=== PATIENT | female | born 1990 | race Caucasian/White ===

== ENCOUNTER 2016-09-17 19:08 | Emergency (ER) | payer MEDICAID ==
[~2016-09-17 19:08] MED LIST: CEPH-460 PO; NITR1CAP36 PO; PREN1CAP20; PROM25TA5 PO
[2016-09-17] MEDS ORDERED: LACTATED RINGER'S 1000 ML INJ 1,000 ML IV SCH (19:45)
[2016-09-17] MEDS ORDERED: TERBUTALINE INJ 1 MG/ML AMP SQ PRN (20:00)
[2016-09-17 20:20] LABS: HEMATOCRIT 34.1 % (35.0-46.0); MEAN CELL VOLUME 91.4 FL (80.0-100.0); MEAN CORPUSCULAR HEMOGLOBIN 31.1 PG (27.0-34.0); PLATELET COUNT 298 TH/MM3 (150-450); RED BLOOD COUNT 3.73 MIL/MM3 (4.00-5.30); RED CELL DISTRIBUTION WIDTH 13.4 % (11.6-17.2); REVIEW FLAG FINAL; WHITE BLOOD COUNT 11.4 TH/MM3 (4.0-11.0)
[2016-09-17 20:30] LABS: AMPHETAMINE, URINE NEG (NEG); BARBITURATES, URINE NEG (NEG)
[2016-09-17 20:38] LABS: COCAINE, URINE POS (NEG)
--- NOTE | 2016-09-17 20:55 | PD ---
HPI Chief Complaint decreased movement Date Seen: Sep 17, 2016 Travel History International Travel<30 Days: No Contact w/Intl Traveler<30Days: No Known Affected Area: No History of Present Illness HPI Patient is a 25-year-old white female at 36 weeks and 6 days presents complaining of decreased movement and occasional contractions. She denies bleeding or rupture the membranes. heart rate tracing is reactive hours she is also mary every 2-3 minutes. 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 SKIN: Warm and dry. HEAD: Normocephalic and atraumatic. EYES: No scleral icterus. No injection or drainage. ENT: No nasal drainage noted. Mucous membranes pink. Airway patent. NECK: Supple, trachea midline. No JVD. CARDIOVASCULAR: Regular rate and rhythm without murmurs, gallops, or rubs. RESPIRATORY: Breath sounds equal bilaterally. No accessory muscle use. BREASTS: Bilateral exam showed no masses , no retractions, no nipple discharge. ABDOMEN/GI: Abdomen soft, non-tender, bowel sounds present, no rebound, no guarding Gravid to [35-] weeks size Fundal Height: [-34 cm] GENITOURINARY: External Genitalia: intact and normal in appearance BUS glands: [-] Cervix: [-] Dilatation: [-1-2] Effacement: [-thick] Station: [-3] Presentation: [-breech] Membranes: [intact ] Uterine Contractions: [-] Initially mary regularly but that with tocolysis and hydration IV contractions stopped FHT's: Category: [-1] Baseline: [144-] Reactive: [-yes] Variability: [-mod] Decels: [none-] EXTREMITIES: No cyanosis or edema. BACK: Nontender without obvious deformity. No CVA tenderness. NEUROLOGICAL: Awake and alert. Motor and sensory grossly within normal limits. Five out of 5 muscle strength in all muscle groups. Normal speech. Data Data Orders Vital Signs (Adult) .ON ADMISSION (09/17/16 19:45) ^ Labor Status (09/17/16 19:45) Cbc No Diff, Includes Plts (09/17/16 19:45) Type And Screen (09/17/16 19:45) Lactated Ringer's 1000 Ml Inj (Lr 1000 M (09/17/16 19:45) Terbutaline Inj (Brethine Inj) (09/17/16 20:00) Ob/Psych Drug Screen, Urine (09/17/16 20:06) Ur Bath Salts (09/17/16 19:20) Ur Heroin (09/17/16 19:20) Ur K2 Spice (09/17/16 19:20) Ur Ecstasy (09/17/16 19:20) Ur Methadone (09/17/16 19:20) Phencyclidine Urine (Pcp) (09/17/16 19:20) Labs Laboratory Tests Test 09/17/16 09/17/16 19:20 20:00 Urine Opiates Screen NEG Urine Barbiturates Screen NEG Urine Amphetamines Screen NEG Urine Benzodiazepines Screen NEG Urine Cocaine Screen POS Urine Cannabinoids Screen NEG White Blood Count 11.4 Red Blood Count 3.73 Hemoglobin 11.6 Hematocrit 34.1 Mean Corpuscular Volume 91.4 Mean Corpuscular Hemoglobin 31.1 Mean Corpuscular Hemoglobin 34.0 Concent Red Cell Distribution Width 13.4 Platelet Count 298 Mean Platelet Volume 9.8 MDM Interpretation(s) 25-year-old white female at 36 weeks and 6 days presents complaining of decreased movement and few contractions. Here on OB ED noted be mary every 2 minutes. She is still in a breech presentation as was documented prior and she scheduled for in 2 weeks for that she denies bleeding or ruptured membranes. And she is [facility] by [facility] care. The patient's contractions noted we started an IV and give her IV fluid she was apparently dehydrated fluid temporally stopped contractions. Also given one dose of terbutaline subcutaneous. CTXs decrease to the point she's to be discharged home. Her urinalysis was negative for infection but positive for cocaine use her previous previous visit appears was positive for amphetamine use she was certainly encouraged not to do drugs while and this is certainly cocaine particularly was associated with demise and abruption. She'll be discharged home bed rest drink plenty of fluids use Tylenol liberally heating pad or hot bath Plan And plan patient be discharged home to bedrest increase oral intake of fluids Tylenol use liberally. She is to return for any great increase in pain bleeding or rupture the membranes. Any once again encouraged not to do drugs of any kind Diagnosis Diagnosis: Primary Impression: Decreased movement affecting management of in third trimester Additional Impressions: Breech presentation Dehydration, mild Aguilar Hick's contraction Disposition: 01 DISCHARGE HOME Condition: Stable Patient Instructions: General Instructions, Early Labor Signs (ED), Movement (ED) Additional Instructions: KEEP NEXT SCHEDULED APPOINTMENT Departure Forms: Tests/Procedures Remigio Menjivar II, MD Sep 17, 2016 20:55
[2016-09-23 13:38] LABS: BATH SALTS (MDPV) UR NEG (NEG); ECSTASY (MDMA) UR NEG (NEG); HEROIN (6-ACETYLMORPHINE) UR NEG (NEG); K2 SPICE UR NEG (NEG); OBMETHADONE UR NEG (NEG); OXYCODONE (PERCODAN) NEG (NEG); PHENCYCLIDINE URINE NEG (NEG)
[2017-01-10] MEDS ORDERED: MACR100C2 PO (11:04)
[2017-01-24] MEDS ORDERED: PROZ20CA11 PO (11:07)
== END 2016-09-17 21:20 | disposition home or self-care (01) ==
LOC: HOBED 19:08
DX: O36.8130 Decreased fetal movements, third trimester, not applicable or unspecified (principal); O32.1XX0 Maternal care for breech presentation, not applicable or unspecified; E86.0 Dehydration; Z3A.36 36 weeks gestation of pregnancy; Z72.0 Tobacco use
CPT/HCPCS: 59025; 80307; 85027; 86077; 86850; 86870; 86900; 86901; 86920; 86921; 86922; 96372; 99284; G0481; J3105; J7120

== ENCOUNTER 2016-09-21 22:57 | Inpatient (IN) | payer MEDICAID ==
[~2016-09-21] VITALS: Ht 160 cm; Wt 53.1 kg
[2016-09-21] MEDS ORDERED: LACTATED RINGER'S 1000 ML INJ 1,000 ML IV ONE (23:22)
--- NOTE | 2016-09-21 23:33 | HHI.HP ---
HPI Travel History International Travel<30 Days: No Contact w/Intl Traveler<30Days: No Known Affected Area: No History of Present Illness HPI This patient is a 25-year-old 2 para 1 EDC is October 09, 2016 presently at 37 weeks and 3 days she presents with chief complaint of onset of contractions and leaking fluid patient is breech and she is scheduled for a section at 39 weeks care with [facility] course is significant for breech presentation History of low amniotic fluid index last checked was 8.5 however patient has been leaking fluid History Past Medical History Narrative Medical Patient is allergic to latex has MDR O multidrug-resistant organism History of anxiety she states that she has had a heart attack in the past in March 2015 however this could not be confirmed history of congenital kidney disorder hypoplastic left kidney Tested positive for MRSA in February 2016 nasal swab negative April 2016 Rh- she received RhoGAM at 28 weeks group B strep is negative Patient last ate she states 2 bites of food just prior to coming in Breech confirmed with ultrasound History of anxiety Obstetric History Obstetric History History of labor at 24 weeks she delivered the baby at 36 weeks 2010 vaginal delivery Past Surgical History Narrative Surgical Kidney surgery Family History Narrative Family History Noncontributory Social History Alcohol Use: Yes Tobacco Use: No Substance Abuse: No Allergies-Medications (Allergen,Severity, Reaction): Coded Allergies: Latex (Verified Allergy, Severe, 09/20/16) *MDRO Multi-Drug Resistant Organism (Verified Adverse Reaction, Unknown, ) 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 Alert oriented 3 and cooperative in moderate distress secondary to uterine contractions CARDIOVASCULAR: Regular rate and rhythm without murmurs, gallops, or rubs. RESPIRATORY: Breath sounds equal bilaterally. No accessory muscle use. ABDOMEN/GI: Gravid consistent with stated gestational age estimated weight of about 6 pounds Gravid to [-] weeks size Fundal Height: [-] GENITOURINARY: External Genitalia: intact and normal in appearance BUS glands: [-] Cervix: [-] Midline Dilatation: [-] 5 cm Effacement: [-] 100% Station: [-] -2 Presentation: [-] Breech Membranes: [ ruptured] Uterine Contractions: [-] FHT's: Category: [-]1 Baseline: [-] 140 Reactive: [-] + Variability: [-] Moderate Decels: [-] 0 EXTREMITIES: No cyanosis or edema. 2+ reflexes NEUROLOGICAL: Awake and alert. Motor and sensory grossly within normal limits. Five out of 5 muscle strength in all muscle groups. Normal speech. Data Data Vital Signs Reviewed: Yes Orders Ob (2e) Additional Admit Info (09/21/16 23:16) Admit To Inpatient (09/21/16 ) Code Status (09/21/16 23:22) Vital Signs (Adult) .ON ADMISSION (09/21/16 23:22) Activity Oob Ad Sisi (09/21/16 23:22) ^ Heart (09/21/16 23:22) Urinary Catheter Management DEEDEE.Q8H (09/21/16 23:22) ^ Preps (09/21/16 23:22) Scd / Tez / Foot Pump DEEDEE.QSHIFT (09/21/16 23:22) ^ Ultrasound For Locatio (09/21/16 23:22) Diet Npo (09/22/16 Breakfast) Lactated Ringer's 1000 Ml Inj (Lr 1000 M (09/21/16 23:22) Lactated Ringer's 1000 Ml Inj (Lr 1000 M (09/21/16 23:52) Cefazolin 2 Gm Premix (Ancef 2 Gm Premix (09/22/16 00:30) Citric Acid-Sodium Citrate Liq (Bicitra (09/22/16 01:00) Type And Screen (09/21/16 23:22) Complete Blood Count With Diff (09/21/16 23:22) Urinalysis - C+S If Indicated (09/21/16 23:22) Assessment/Plan Assessment and Plan 25-year-old at 37 weeks and 3 days Breech presentation Ruptured membranes Active labor Rh- History of kidney disease History of positive MRSA last exam was negative Latex allergy Plan; Admit External monitoring IV fluid hydration Preop for primary for breech presentation in active labor with ruptured membranes Procedure indications and complications have been fully discussed with the patient she understands and agrees Yanet Hanley MD Sep 21, 2016 23:33
[2016-09-21 23:38] VITALS: BP 139/84; PULSE 97
[2016-09-21 23:39] LABS: AUTOMATED NEUTROPHIL # 12.4 TH/MM3 (1.8-7.7); BASOPHIL # 0.1 TH/MM3 (0-0.2); BASOPHIL % 0.4 % (0.0-2.0); EOSINOPHIL # 0.1 TH/MM3 (0-0.4); EOSINOPHIL % 0.5 % (0.0-4.0); HEMATOCRIT 34.7 % (35.0-46.0); HEMO FLAGS DIFF FINAL; LYMPH % 20.5 % (9.0-44.0); LYMPHOCYTE # 3.4 TH/MM3 (1.0-4.8); MEAN CELL VOLUME 91.4 FL (80.0-100.0); MEAN CORPUSCULAR HGB CONC 32.8 % (32.0-36.0); MONO % 4.6 % (0.0-8.0); PLATELET COUNT 302 TH/MM3 (150-450); RED CELL DISTRIBUTION WIDTH 13.3 % (11.6-17.2); WHITE BLOOD COUNT 16.8 TH/MM3 (4.0-11.0)
[2016-09-21] MEDS ORDERED: EPIDURAL-NO SYSTEMIC NARCOTICS XX PRN (23:50)
[2016-09-21] MEDS ORDERED: EPIDURAL-DIPHENHYDRAMINE HCL 50 MG/ML VIAL IV PUSH PRN (23:50)
[2016-09-21] MEDS ORDERED: EPIDURAL-DO NOT ADMINISTER ANTICOAGULANTS XX PRN (23:50)
[2016-09-21] MEDS ORDERED: EPIDURAL-NALOXONE HCL 0.4 MG/ML AMP IV PRN (23:50)
[2016-09-21] MEDS ORDERED: EPIDURAL-DIPHENHYDRAMINE HCL 50 MG CAP PO PRN (23:50)
[2016-09-21] MEDS ORDERED: LACTATED RINGER'S 1000 ML INJ 1,000 ML IV SCH (23:52)
[2016-09-22] VITALS (8 sets, daily range): BP systolic 102–151; BP diastolic 67–99; PULSE 65–95; RESP 16–18; TEMP 97.7–98.6; O2SAT 93–100
[2016-09-22] MEDS ORDERED: MIDAZOLAM HCL 2 MG/2 ML VIAL ONE (00:15)
[2016-09-22] MEDS ORDERED: ONDANSETRON HCL 4 MG/2 ML VIAL ONE (00:16)
[2016-09-22] MEDS ORDERED: MORPHINE SULFATE PF 5 MG/10 ML VIAL ONE (00:16)
[2016-09-22] MEDS ORDERED: ceFAZolin 2 GM PREMIX 50 ML IV SCH (00:30)
[2016-09-22 00:31] LABS: BLOOD GAS BASE EXCESS -0.1 mmol/L (-2-2); BLOOD GAS O2 HGB SATURATION 29 % (90-100); CORD BLOOD GAS HCO3 25 mmol/L (21-29); CORD BLOOD GAS PCO2 46 mmHg (34-78); CORD BLOOD GAS PH 7.35 (7.14-7.42); CORD BLOOD GAS PO2 15 mmHG; DRAW SITE CORD BLOOD; STAT YES
[2016-09-22 00:45] LABS: BLOOD, URINE SMALL (NEG); COMMENT (UR) CULT NOT INDICATED; CULTURE IF INDICATED CULT NOT INDICATED; GLUCOSE,URINE NEG (NEG); KETONE, URINE NEG (NEG); MUCUS URINE FEW /lpf (OCC); NITRITE,URINE NEG (NEG); PH, URINE 6.5 (5.0-8.5); SQUAMOUS EPITHELIAL CELL URINE 1 /hpf (0-5); URINE COLOR YELLOW (YELLW/STRAW)
[2016-09-22] MEDS ORDERED: ZOLPIDEM TARTRATE 5 MG TAB PO PRN (00:45)
[2016-09-22] MEDS ORDERED: ACETAMINOPHEN 1000 MG/100 ML VIAL IV ONE (00:45)
[2016-09-22] MEDS ORDERED: ONDANSETRON HCL 4 MG/2 ML VIAL IV PUSH PRN (00:45)
[2016-09-22] MEDS ORDERED: OXYTOCIN 30 UNITS-500ML PREMIX 500 ML IV ONE (00:45)
[2016-09-22] MEDS ORDERED: ACETAMINOPHEN 325 MG TAB PO PRN (00:45)
[2016-09-22] MEDS ORDERED: KETOROLAC TROMETHAMINE 60 MG/2 ML (IM) VIAL IM PRN (00:45)
[2016-09-22] MEDS ORDERED: SIMETHICONE 80 MG CHEWABLE TAB PO PRN (00:45)
[2016-09-22] MEDS ORDERED: SODIUM CHLORIDE 0.9% FLUSH 5 ML FLUSH IV PRN (00:45)
[2016-09-22 00:46] LABS: AMPHETAMINE, URINE NEG (NEG); BARBITURATES, URINE NEG (NEG); COCAINE, URINE NEG (NEG)
--- NOTE | 2016-09-22 00:47 | PD.OP ---
Operative Report Date of Surgery: Sep 22, 2016 Preoperative Diagnosis: Intrauterine at 37 weeks 3 days Breech presentation Premature rupture membranes Active labor Postoperative Diagnosis: Same Double footling breech Partial abruption Procedure: Primary low segment transverse section Anesthesia: Spinal Surgeon: Yanet Hickey Director Foundation(s): Or staff Resident Surgeon: None Operation and Findings: Viable male infant weight 2416 grams Apgars of 8 at 1 minute 9 at 5 minutes Double footling breech Partial placental abruption Anesthesiologist:: (Dr. Harris ) Estimated blood loss: (600 cc ) Sponge and instrument count: (Correct ) Drains: (None ) Complications: (None ) Indications for procedure: (Breech presentation ) Findings: (Male infant weight 2416 grams Apgars of 8 and 1 minute 9 at 5 minutes partial abruption ) Timeout done The patient was taken to the operating room after appropriate levels of spinal anesthesia were achieved she was placed in the supine position. A Schaffer catheter was inserted under sterile conditions and draining adequate clear urine. Intermittent compression hoses were placed and functioning. Bovie pad was placed and grounded. The abdomen was shaved prepped and draped in the usual sterile fashion. A transverse Pfannenstiel incision was made carried down through the skin subcutaneous tissue. The fascia was opened transversely. from the muscles in the midline. The rectus muscles were . Peritoneal cavity opened and the abdominal cavity entered. The bladder flap was taken down transversely and a low segment transverse incision made into the lower uterine segment. The fluid was (light meconium-stained ). Large clot extruded from the inside of the uterus The infant was double footling breech . Both feet were then grasped the baby was elevated into the incision Pinars maneuvers were used to deliver the arms the vertex delivered spontaneously Cord doubly clamped and cut and the handed over to the awaiting nursing staff. The placenta spontaneously delivered intact with fundal massage. The uterus was then exteriorized cleaned of excessive blood and debris. The incision was then closed with 0 chromic in a continuous interlocking stitch. The stitch line was imbricated also using 0 chromic. No active bleeding. Tubes and ovaries were inspected and found to be normal. The abdominal cavity was then irrigated. The uterus placed back into the abdomen. Paracolic gutters cleaned of excessive blood and debris. Interceed was then placed over the incision and the anterior surface of the uterus in an inverted T. The peritoneum was then closed with 2-0 Vicryl. The muscles reapproximated. Inspection of the muscle bed demonstrated no bleeding. Intercede placed over the muscle at the midline. The fascia was then closed with 0 Vicryl in a continuous stitch. The subcutaneous tissue was irrigated bleeders controlled with Bovie. Adelso's fascia closed with 2-0 Vicryl. The skin was closed using ( 3-0 Monocryl on a Julien needle). The uterus was massaged clearing blood and clots. The patient was cleaned. Pressure dressing and abdominal binder placed. Patient then transferred to the recovery room in stable condition, where her vital signs are (blood pressure mildly elevated 160s over 70s Will monitor closely ). Urine is clear and adequate. Baby transferred to the nursery in stable condition. Yanet Hanley MD Sep 22, 2016 00:47
[2016-09-22] MEDS ORDERED: CITRIC ACID-SODIUM CITRATE LIQ 30 ML UDC PO SCH (01:00)
[2016-09-22] MEDS ORDERED: OXYTOCIN 30 UNITS-500ML PREMIX 500 ML ONE (02:12)
[2016-09-22] MEDS ORDERED: NIFEdipine 10 MG CAP ONE (02:18)
[2016-09-22] MEDS ORDERED: LACTATED RINGER'S 1000 ML INJ 1,000 ML IV SCH (05:41)
[2016-09-22 06:09] LABS: AUTOMATED NEUTROPHIL # 14.3 TH/MM3 (1.8-7.7); BASOPHIL # 0.1 TH/MM3 (0-0.2); BASOPHIL % 0.3 % (0.0-2.0); EOSINOPHIL % 0.2 % (0.0-4.0); HEMATOCRIT 32.9 % (35.0-46.0); HEMO FLAGS DIFF FINAL; LYMPHOCYTE # 2.5 TH/MM3 (1.0-4.8); MEAN CELL VOLUME 92.9 FL (80.0-100.0); MEAN CORPUSCULAR HEMOGLOBIN 30.5 PG (27.0-34.0); MEAN CORPUSCULAR HGB CONC 32.9 % (32.0-36.0); MONO % 3.7 % (0.0-8.0); NEUT % 81.8 % (16.0-70.0); PLATELET COUNT 267 TH/MM3 (150-450); RED BLOOD COUNT 3.54 MIL/MM3 (4.00-5.30); RED CELL DISTRIBUTION WIDTH 13.5 % (11.6-17.2); WHITE BLOOD COUNT 17.5 TH/MM3 (4.0-11.0)
--- NOTE | 2016-09-22 07:18 | HHI.OB ---
Subjective Post Operative Day: 0 Remarks Postoperative day number 0. AFVSS overnight. Pain controlled with medication. Incision not draining. Decreased lochia. Denies dysuria. No breast tenderness. She is feeding the baby via breast. Appetite good. No nausea or vomiting. Endorses flatus. No bowel movement. Ambulating well. Denies calf pain, shortness of breath, or cough. Otherwise, she is doing well this morning and has no other complaints. Objective Vitals/I&O Vital Signs Date Time Temp Pulse Resp B/P Pulse Ox O2 Delivery O2 Flow Rate FiO2 09/22/16 02:47 133/94 09/22/16 02:30 65 18 131/97 09/22/16 02:15 65 18 138/93 100 09/22/16 02:00 68 18 151/97 98 09/22/16 01:15 72 18 148/99 100 09/22/16 00:40 97.7 93 09/22/16 00:40 95 16 123/69 09/21/16 23:38 97 139/84 Result Diagram: 09/22/16 0424 Objective Remarks GENERAL: Well-nourished, well-developed patient. CARDIOVASCULAR: Regular rate and rhythm without murmurs, gallops, or rubs. RESPIRATORY: Breath sounds equal bilaterally. No accessory muscle use. ABDOMEN/GI: Abdomen soft, non-tender, bowel sounds present. Incision: Clean, dry and intact. Fundus: Firm, non-tender at umbilicus. GENITOURINARY: Light to moderate bleeding. EXTREMITIES: No cyanosis or edema, non-tender, without signs of DVT. Medications and IVs Current Medications Medications (Trade) Dose Ordered Sig/Azael Route Start Time Stop Time Status Last Admin (Lr 1000 ml Inj) 1,000 ml @ 100 mls/hr Q10H IV 09/22/16 05:41 09/23/16 01:40 09/22/16 01:27 (NS Flush) 2 ml BID IV 09/22/16 09:00 (NS Flush) 2 ml UNSCH PRN IV 09/22/16 00:45 (Mylicon Chew) 80 mg QID PRN PO 09/22/16 00:45 (Tylenol) 650 mg Q6H PRN PO 09/22/16 00:45 (Motrin) 600 mg Q6H PRN PO 09/22/16 00:45 (Toradol Inj) 30 mg Q6H PRN IM 09/22/16 00:45 09/23/16 00:44 (Percocet 5-325 Mg) 1 tab Q4H PRN PO 09/22/16 00:45 Oxycodone/ Acetaminophen 2 tab 2 tab Q4H PRN PO 09/22/16 00:45 (Ancef Inj/NS Inj) 100 ml @ 200 mls/hr Q8H IV 09/22/16 08:00 09/22/16 16:29 (Marylin-Colace) 2 tab Q12H PRN PO 09/22/16 00:45 (Ambien) 5 mg HS PRN PO 09/22/16 00:45 (M-M-R Ii Inj) 0.5 ml ONCE ONCE SQ 09/23/16 16:00 09/23/16 16:01 (Boostrix Inj) 0.5 ml ONCE ONCE IM 09/23/16 16:00 09/23/16 16:01 (Zofran Inj) 4 mg Q6H PRN IV PUSH 09/22/16 00:45 Miscellaneous Information NO SYSTEMIC NARCOTICS TO BE GIVEN FO... UNSCH PRN XX 09/21/16 23:50 09/22/16 23:49 (Narcan Inj) 0.4 mg UNSCH PRN IV 09/21/16 23:50 09/22/16 23:49 (Benadryl Inj) 25 mg Q6H PRN IV PUSH 09/21/16 23:50 09/22/16 23:49 (Benadryl) 50 mg Q6H PRN PO 09/21/16 23:50 09/22/16 23:49 Miscellaneous Information ALL NURSING DEPARTMENTS UNSCH PRN XX 09/21/16 23:50 09/22/16 23:49 Assessment/Plan Assessment and Plan 25y/o female who is POD#0 s/p CXN. -Continue routine care. -Percocet and Motrin PRN pain. -Encouraged OOB. Advised pelvic rest for 6 wks. Will need a f/u appt. in 1 wk for incision check. -Re: ctrl, she is undecided. -D/c in 1-2 more days. wdw OB attending Brandon Jensen MD R1 Sep 22, 2016 07:18
[2016-09-22] MEDS ORDERED: OXYTOCIN 30 UNITS-500ML PREMIX 500 ML IV PRN (10:45)
[2016-09-22] MEDS: IBUPROFEN 600 MG TAB PO PRN ×2 (12:02→20:26)
[2016-09-22] MEDS: DOCUSATE SODIUM 50 MG/SENNA 8.6 MG TAB PO PRN (20:26)
[2016-09-22] MEDS: oxyCODONE/ACETAMINOPHEN 5 MG/325 MG TAB PO PRN (20:26)
[2016-09-22] MEDS: SODIUM CHLORIDE 0.9% FLUSH 5 ML FLUSH IV SCH (21:00)
[2016-09-23] MEDS: oxyCODONE/ACETAMINOPHEN 5 MG/325 MG TAB PO PRN ×4 (00:11→23:48)
--- NOTE | 2016-09-23 07:21 | HHI.OB ---
Subjective Remarks 25 year old POD 1 after for breech presentation. No events overnight. Pain at incision site, no leakage reported. Walking around. No bowel movement, but has flatus. Lochia is minimal. Choosing to formula feed, encourage . Will follow up with Mellissa Contreras. Has some nausea this morning. No other problems this morning. (Mohinder Campbell MD R2) Objective Vitals/I&O Vital Signs Date Time Temp Pulse Resp B/P Pulse Ox O2 Delivery O2 Flow Rate FiO2 09/23/16 00:50 18 09/22/16 21:10 18 09/22/16 21:10 18 09/22/16 15:40 98.6 09/22/16 15:40 84 18 110/74 09/22/16 12:11 85 18 102/67 (Mohinder Campbell MD R2) Result Diagram: 09/22/16 0424 Objective Remarks GENERAL: Well-nourished, well-developed patient. CARDIOVASCULAR: Regular rate and rhythm without murmurs, gallops, or rubs. RESPIRATORY: Breath sounds equal bilaterally. No accessory muscle use. ABDOMEN/GI: Abdomen soft, non-tender, bowel sounds present. Incision: Clean, dry and intact. Fundus: Firm, non-tender at umbilicus. GENITOURINARY: Light to moderate bleeding. EXTREMITIES: No cyanosis or edema, non-tender, without signs of DVT. Medications and IVs Current Medications Medications (Trade) Dose Ordered Sig/Azael Route Start Time Stop Time Status Last Admin (NS Flush) 2 ml BID IV 09/22/16 09:00 (NS Flush) 2 ml UNSCH PRN IV 09/22/16 00:45 (Mylicon Chew) 80 mg QID PRN PO 09/22/16 00:45 (Tylenol) 650 mg Q6H PRN PO 09/22/16 00:45 (Motrin) 600 mg Q6H PRN PO 09/22/16 00:45 09/22/16 20:26 (Percocet 5-325 Mg) 1 tab Q4H PRN PO 09/22/16 00:45 09/23/16 00:11 (Percocet 5-325 Mg) 2 tab Q4H PRN PO 09/22/16 00:45 09/22/16 20:26 (Marylin-Colace) 2 tab Q12H PRN PO 09/22/16 00:45 09/22/16 20:26 (Ambien) 5 mg HS PRN PO 09/22/16 00:45 (M-M-R Ii Inj) 0.5 ml ONCE ONCE SQ 09/23/16 16:00 09/23/16 16:01 (Boostrix Inj) 0.5 ml ONCE ONCE IM 09/23/16 16:00 09/23/16 16:01 09/23/16 00:13 (Zofran Inj) 4 mg Q6H PRN IV PUSH 09/22/16 00:45 (Mohinder Campbell MD R2) Assessment/Plan Assessment and Plan 25 year old POD 1 after for breech presentation. - Pain control with Percocet and ibuprofen - Zofran for nausea - Encourage ambulation - Monitor incision site - Discuss control options - Encourage - Will follow up with Mellissa Contreras - D/edgardo in 1 to [address] Bender (Mohinder Campbell MD R2) Attending Attestation Patient seen and examined with the resident under direct supervision, I agree with the assessment and plan. (Jarrett Medina MD) Mohinder Campbell MD R2 Sep 23, 2016 07:21 Jarrett Medina MD Sep 23, 2016 10:19
[2016-09-23] MEDS: IBUPROFEN 600 MG TAB PO PRN ×3 (07:42→23:48)
[2016-09-23] MEDS: SODIUM CHLORIDE 0.9% FLUSH 5 ML FLUSH IV SCH ×2 (09:00→21:00)
[2016-09-23] MEDS ORDERED: DIPHTH/TETANUS/ACEL PERTUSSIS (BOOSTER) 0.5 ML VIAL/PFS IM ONE (16:00)
[2016-09-23] MEDS ORDERED: MEASLES, MUMPS, RUBELLA VACCINE 0.5 ML VIAL SQ ONE (16:00)
[2016-09-23 22:06] VITALS: TEMP 98.3
[2016-09-23] MEDS: DOCUSATE SODIUM 50 MG/SENNA 8.6 MG TAB PO PRN (23:48)
[2016-09-24] MEDS ORDERED: OXYC1TAB63 PO (06:54)
[2016-09-24] MEDS ORDERED: SIME80CH PO (06:54)
[2016-09-24] MEDS ORDERED: SENN1TAB PO (06:54)
[2016-09-24] MEDS ORDERED: IBUP-232 PO (06:54)
--- NOTE | 2016-09-24 07:27 | HHI.OB ---
Subjective Remarks 25 year old POD 2 after for breech delivery. Vital signs stable. Formula feeding, encourage exclusive . Lochia is minimal. Uncertain about control, will discuss at OB visit further. Passing flatus , no bowel movement. Eating and ambulating. Wants to go home today. (Mohinder Campbell MD R2) Objective Vitals/I&O Vital Signs Date Time Temp Pulse Resp B/P Pulse Ox O2 Delivery O2 Flow Rate FiO2 09/24/16 02:03 18 09/24/16 02:03 18 09/23/16 22:06 98.3 (Mohinder Campbell MD R2) Result Diagram: 09/22/16 0424 Objective Remarks GENERAL: Well-nourished, well-developed patient. CARDIOVASCULAR: Regular rate and rhythm without murmurs, gallops, or rubs. RESPIRATORY: Breath sounds equal bilaterally. No accessory muscle use. ABDOMEN/GI: Abdomen soft, non-tender, bowel sounds present. Incision: Clean, dry and intact. Fundus: Firm, non-tender at umbilicus. GENITOURINARY: Light bleeding. EXTREMITIES: No cyanosis or edema, non-tender, without signs of DVT. Medications and IVs Current Medications Medications (Trade) Dose Ordered Sig/Azael Route Start Time Stop Time Status Last Admin (NS Flush) 2 ml BID IV 09/22/16 09:00 (NS Flush) 2 ml UNSCH PRN IV 09/22/16 00:45 (Mylicon Chew) 80 mg QID PRN PO 09/22/16 00:45 (Tylenol) 650 mg Q6H PRN PO 09/22/16 00:45 (Motrin) 600 mg Q6H PRN PO 09/22/16 00:45 09/23/16 23:48 (Percocet 5-325 Mg) 1 tab Q4H PRN PO 09/22/16 00:45 09/23/16 12:01 (Percocet 5-325 Mg) 2 tab Q4H PRN PO 09/22/16 00:45 09/23/16 23:48 (Marylin-Colace) 2 tab Q12H PRN PO 09/22/16 00:45 09/23/16 23:48 (Ambien) 5 mg HS PRN PO 09/22/16 00:45 (Zofran Inj) 4 mg Q6H PRN IV PUSH 09/22/16 00:45 (Mohinder Campbell MD R2) Assessment/Plan Assessment and Plan 25 year old POD 2 after for breech presentation. - Pain control with Percocet and ibuprofen - Zofran for nausea - Encourage ambulation - Monitor incision site - Discuss control options - Encourage - Will follow up with Mellissa Contreras - Plan for discharge today Discuss with OB attending (Mohinder Campbell MD R2) Attending Attestation Patient seen and evaluated with resident under direct supervision, agree with assessment and plan. (Mina Castro MD) Mohinder Campbell MD R2 Sep 24, 2016 07:27 Mina Castro MD Sep 24, 2016 08:47
--- NOTE | 2016-09-24 07:28 | HHI.DCPOC ---
Discharge Care Plan Diagnosis: (1) Status post Goals to Promote Your Health * To prevent worsening of your condition and complications * To maintain your health at the optimal level Directions to Meet Your Goals Take your medications as prescribed Follow your dietary instruction Follow activity as directed Keep your appointments as scheduled Take your immunizations and boosters as scheduled If your symptoms worsen call your PCP, if no PCP go to Urgent Care Center or Emergency Room Smoking is Dangerous to Your Health. Avoid second hand smoke Call the 24-hour hour crisis hotline for domestic abuse at Mohinder Campbell MD R2 Sep 24, 2016 07:28 Mina Castro MD Sep 24, 2016 08:46
[2016-09-24 08:00] VITALS: BP 125/88; PULSE 81; RESP 18; TEMP 98.6; O2SAT 98
[2016-09-24] MEDS: IBUPROFEN 600 MG TAB PO PRN (10:21)
[2016-09-27 10:12] LABS: BATH SALTS (MDPV) UR NEG (NEG); ECSTASY (MDMA) UR NEG (NEG); HEROIN (6-ACETYLMORPHINE) UR NEG (NEG); K2 SPICE UR NEG (NEG); OBMETHADONE UR NEG (NEG); OXYCODONE (PERCODAN) NEG (NEG); PHENCYCLIDINE URINE NEG (NEG)
[2017-01-10] MEDS ORDERED: MACR100C2 PO (11:04)
[2017-01-24] MEDS ORDERED: PROZ20CA11 PO (11:07)
== END 2016-09-24 16:43 | disposition home or self-care (01) | DRG 765 ==
LOC: HOBED 22:57 → H2EB 23:16 → H1EA 09-22 02:57
PROVIDERS: ADMIT Obstetrics & Gynecology; ATTEND Obstetrics & Gynecology
PROC: 10D00Z1 Extraction of Products of Conception, Low, Open Approach (ICD-10-PCS; principal; 2016-09-21)
DX: O32.8XX0 Maternal care for other malpresentation of fetus, not applicable or unspecified (principal); O45.93 Premature separation of placenta, unspecified, third trimester; O77.0 Labor and delivery complicated by meconium in amniotic fluid; Z91.040 Latex allergy status; Z37.0 Single live birth; Z3A.37 37 weeks gestation of pregnancy
CPT/HCPCS: 80307; 81001; 82805; 84112; 85025; 86850; 86900; 86901; 86920; 86921; 86922; 88307; 90715; 99285; C1765; G0481; J0131; J0690; J1885; J2250; J2274; J2405; J2590; J3010; J7120

== ENCOUNTER 2016-10-10 05:31 | Inpatient (IN) | payer MEDICAID ==
[2016-10-10] VITALS (9 sets, daily range): BP systolic 103–142; BP diastolic 56–92; PULSE 65–114; RESP 16–22; TEMP 98.3–98.9; O2SAT 96–100
[~2016-10-10] VITALS: Ht 160 cm; Wt 52.9 kg
[~2016-10-10 05:31] MED LIST changes: -CEPH-460 PO; +IBUP-232 PO; -NITR1CAP36 PO; +OXYC1TAB63 PO; +SENN1TAB PO; +SIME80CH PO
--- NOTE | 2016-10-10 05:59 | PD ---
HPI Chief Complaint: Abdominal Pain Time Seen by Provider: 05:44 Travel History International Travel<30 days: No Contact w/Intl Traveler<30days: No Traveled to known affect area: No History of Present Illness HPI The patient is a 25 year old female who presents to the [facility] emergency department with a history of abdominal pain that she reports is been present over the last 2 days. The patient reports that the pain is getting worse with time. She reports that it is down in the suprapubic area. The patient reports that she recently had a on September 22, 2015. She reports that this was a term delivery due to breech presentation and low amniotic fluid with spontaneous rupture of membranes possibly up to 2 days prior to delivery. The patient reports that she is formula feeding. She reports that her lochia had been decreasing with time, however over the last couple of days she began to have vaginal bleeding again that consisted of a brown spotting. She denies having any fevers. She reports she has had nausea but no vomiting recently, however she did vomit 1, 2 days ago. She reports that she last moved her bowels yesterday. She denies having sex since delivery. Incidentally, on review of systems the patient reports that she does have some discomfort with urinating. She also reports that she has a bump on her posterior left thigh that opened up and drained recently. The patient reports that she does have a history of MRSA previously. The patient denies any recent fever, cough, congestion, neck pain, chest pain, shortness of breath , abdominal pain, diarrhea, urinary symptoms, or neurologic symptoms. [facility] Past Medical History Narrative Medical The patient's past medical history is significant for anxiety, history of MRSA skin infections previously. She is Rh-. Anxiety: Yes Depression: Yes Cardiovascular Problems: Yes (PR) Diminished Hearing: No Immunizations Current: Yes Myocardial Infarction: Yes ?: Not : 2 Para: 2 Past Surgical History Narrative Surgical The patient's past surgical history is significant for one . The patient also reports in childhood having a kidney surgery. Section: Yes Genitourinary Surgery: Yes (kidney surgery as a child) Social History Alcohol Use: No Tobacco Use: Yes (four cigarettes per day) Substance Use: Yes (marijuana) Allergies-Medications (Allergen,Severity, Reaction): Coded Allergies: Latex (Verified Allergy, Severe, 10/10/16) *MDRO Multi-Drug Resistant Organism (Verified Adverse Reaction, Unknown, ) MRSA (abdomen-02/2016) Reported Meds & Prescriptions Reported Meds & Active Scripts Active Review of Systems Except as stated in HPI: all other systems reviewed are Neg General / Constitutional: No: Fever Eyes: No: Visual changes HENT: No: Headaches Cardiovascular: No: Chest Pain or Discomfort Respiratory: No: Shortness of Breath Gastrointestinal: Positive: Nausea, Vomiting, Abdominal Pain, Loss of Appetite , No: Diarrhea, Changes in Bowel Habits, Indigestion Genitourinary: Positive: Dysuria, Decreased Urinary Output, No: Urgency, Frequency Musculoskeletal: Positive: Myalgias, No: Pain Skin: No Rash Neurologic: No: Weakness Psychiatric: No: Depression Endocrine: No: Polydipsia Hematologic/Lymphatic: No: Easy Bruising Physical Exam Narrative General: The patient is a well-developed well-nourished female, uncomfortable appearing on initial arrival by ambulance services. Head and Neck exam: Head is normocephalic atraumatic. Eyes: Pupils are equal round and reactive to light. Nose: Midline septum with pink mucous membranes Mouth: Dentition unremarkable. Moist mucus membranes. Posterior oropharynx is not erythematous. No tonsillar hypertrophy. Uvula midline. Airway patent. Neck: No palpable lymphadenopathy. No nuchal rigidity. No thyromegaly. Cardiovascular: Regular rate and rhythm without murmurs, gallops, or rubs. Lungs: Clear to auscultation bilaterally. No wheezes, rhonchi, or rales. Abdomen: Soft, with tenderness on palpation of the suprapubic area. The scar is noted along the lower aspect of the abdomen. This appears to be healing well. There is 1 less than 1 cm area of the scar that continues to be slightly open, however. Granulation tissue is noted. There is no drainage. There is no surrounding erythema or edema the site. No guarding, rebound, or rigidity. Normal bowel sounds are audible. Extremities: No clubbing, cyanosis, or edema. 2+ pulses in all 4 extremities. Back: No spinous process tenderness to palpation. No costovertebral angle tenderness to palpation. Neurologic Exam: Grossly nonfocal. Skin Exam: Left posterior upper thigh is noted to have an area of erythema with tenderness on palpation. In the center of this area is a wound. The patient reports that this wound did drain. She reports that it was bigger and is actually improved since draining. Gynecologic exam: The patient was placed in the dorsal lithotomy position. Her external genitalia were examined. She had no evidence of rash or lesions. The speculum was placed into her vagina and the cervix was identified. She had a scant amount of yellow to brown discharge noted. No cervical friability. On Bimanual exam: she has cervical motion tenderness. No adnexal tenderness or prominence noted on palpation. No uterine tenderness or enlargement noted on palpation. Data Data Last Documented VS Vital Signs Date Time Temp Pulse Resp B/P Pulse Ox O2 Delivery O2 Flow Rate FiO2 10/10/16 05:56 114 16 100 Room Air 10/10/16 05:37 98.9 142/92 Orders Complete Blood Count With Diff (10/10/16 05:44) Comprehensive Metabolic Panel (10/10/16 05:44) Lipase (10/10/16 05:44) Urinalysis - C+S If Indicated (10/10/16 05:44) Us Pelvis Comp Complaint Analyst/Non-Preg (10/10/16 05:44) Iv Access Insert/Monitor (10/10/16 05:44) Ecg Monitoring (10/10/16 05:44) Oximetry (10/10/16 05:44) Ed Urine Pregnancytest Poc (10/10/16 05:44) Ketorolac Inj (Toradol Inj) (10/10/16 06:15) Sodium Chlor 0.9% 1000 Ml Inj (Ns 1000 M (10/10/16 06:15) Ondansetron Inj (Zofran Inj) (10/10/16 06:15) Gc And Chlamydia Pcr (10/10/16 06:20) Wet Prep Profile (10/10/16 06:20) Lactic Acid Sepsis Protocol (10/10/16 06:37) Blood Culture (10/10/16 06:37) Vancomycin Inj (Vancomycin Inj) (10/10/16 06:45) Piperacil-Tazo 3.375 Gm Premix (Zosyn 3. (10/10/16 06:45) Labs Laboratory Tests Test 10/10/16 10/10/16 05:50 06:25 White Blood Count 18.2 TH/MM3 Red Blood Count 3.81 MIL/MM3 Hemoglobin 11.5 GM/DL Hematocrit 34.7 % Mean Corpuscular Volume 91.1 FL Mean Corpuscular Hemoglobin 30.3 PG Mean Corpuscular Hemoglobin 33.2 % Concent Red Cell Distribution Width 13.3 % Platelet Count 168 TH/MM3 Mean Platelet Volume 8.6 FL Neutrophils (%) (Auto) 67.1 % Lymphocytes (%) (Auto) 26.5 % Monocytes (%) (Auto) 4.0 % Eosinophils (%) (Auto) 1.8 % Basophils (%) (Auto) 0.6 % Neutrophils # (Auto) 12.2 TH/MM3 Lymphocytes # (Auto) 4.8 TH/MM3 Monocytes # (Auto) 0.7 TH/MM3 Eosinophils # (Auto) 0.3 TH/MM3 Basophils # (Auto) 0.1 TH/MM3 CBC Comment DIFF FINAL Differential Comment Sodium Level 140 MEQ/L Potassium Level 4.4 MEQ/L Chloride Level 108 MEQ/L Carbon Dioxide Level 20.9 MEQ/L Anion Gap 11 MEQ/L Blood Urea Nitrogen 13 MG/DL Creatinine 0.81 MG/DL Estimat Glomerular Filtration 85 ML/MIN Rate Random Glucose 87 MG/DL Calcium Level 8.9 MG/DL Total Bilirubin 0.4 MG/DL Aspartate Amino Transf 24 U/L (AST/SGOT) Alanine Aminotransferase 21 U/L (ALT/SGPT) Alkaline Phosphatase 120 U/L Total Protein 7.3 GM/DL Albumin 3.2 GM/DL Lipase 64 U/L Clue Cells (Wet Prep) NONE SEEN Vaginal Trichomonas (Wet Prep) NONE SEEN Vaginal Yeast (Wet Prep) NONE SEEN MDM Medical Decision Making Medical Screen Exam Complete: Yes Emergency Medical Condition: Yes Medical Record Reviewed: Yes Differential Diagnosis Endometritis, versus retained products of conception, versus urinary tract infection Narrative Course During the course of the patients emergency department visit, the patients history, examination, and differential diagnosis were reviewed with the patient. The patient had IV access obtained and blood work sent for analysis. The patient was placed on a quality assurance monitor final with oximetry and blood pressure monitoring. An ultrasound was ordered to further evaluate her uterus for possible endometritis, versus retained products of conception. The patient was provided Zosyn 3.375 g IV, vancomycin 1 g IV-for MRSA coverage. The patient was started on normal saline 1 L IV fluid bolus, Zofran 4 mg IV for nausea, Toradol 15 mg IV for pain. The patients laboratory studies were reviewed and remarkable for a white count of 18.2, hemoglobin 11.5, platelets 168, CMP is remarkable for chloride of 108, CO2 20.9, GFR of 85, alkaline phosphatase 120, lipase 64. The patient's ultrasound is pending at the conclusion of my shift. The patient' s case with out to the oncoming emergency physician disposition after ultrasound results. I anticipate that the patient will require admission for IV antibiotic. Sepsis Criteria SIRS Criteria (2 or more): Heart rate over 90, WBC > 47752, < 4000 or > 10% bands Sepsis Criteria (SIRS+source): Infect source susp/known Diagnosis Primary Impression: Pelvic pain Additional Impressions: Status post Sepsis Qualified Code: A41.9 - Sepsis, due to unspecified organism Admitting Information Admitting Physician Requests: Admit Ruchi Hawley MD Oct 10, 2016 05:59
[2016-10-10 06:06] LABS: AUTOMATED NEUTROPHIL # 12.2 TH/MM3 (1.8-7.7); BASOPHIL # 0.1 TH/MM3 (0-0.2); BASOPHIL % 0.6 % (0.0-2.0); EOSINOPHIL # 0.3 TH/MM3 (0-0.4); EOSINOPHIL % 1.8 % (0.0-4.0); HEMATOCRIT 34.7 % (35.0-46.0); HEMO FLAGS DIFF FINAL; LYMPH % 26.5 % (9.0-44.0); LYMPHOCYTE # 4.8 TH/MM3 (1.0-4.8); MEAN CELL VOLUME 91.1 FL (80.0-100.0); MEAN CORPUSCULAR HEMOGLOBIN 30.3 PG (27.0-34.0); MEAN CORPUSCULAR HGB CONC 33.2 % (32.0-36.0); NEUT % 67.1 % (16.0-70.0); PLATELET COUNT 168 TH/MM3 (150-450); RED BLOOD COUNT 3.81 MIL/MM3 (4.00-5.30); RED CELL DISTRIBUTION WIDTH 13.3 % (11.6-17.2); WHITE BLOOD COUNT 18.2 TH/MM3 (4.0-11.0)
[2016-10-10] MEDS ORDERED: SODIUM CHLOR 0.9% 1000 ML INJ 1,000 ML IV ONE (06:15)
[2016-10-10] MEDS ORDERED: ONDANSETRON HCL 4 MG/2 ML VIAL IV PUSH ONE (06:15)
[2016-10-10] MEDS ORDERED: KETOROLAC TROMETHAMINE 30 MG/ML (IVP) VIAL IV PUSH ONE (06:15)
[2016-10-10 06:28] LABS: ALKALINE PHOSPHATASE 120 U/L (45-117); TOTAL BILIRUBIN ADULT 0.4 MG/DL (0.2-1.0)
[2016-10-10 06:32] LABS: ALT (GPT) 21 U/L (10-53); ANION GAP 11 MEQ/L (5-15); AST (GOT) 24 U/L (15-37); BICARBONATE 20.9 MEQ/L (21.0-32.0); BLOOD UREA NITROGEN 13 MG/DL (7-18); CHLORIDE 108 MEQ/L (98-107); GLOMERULAR FILTRATION RATE 85 ML/MIN (>89); POTASSIUM 4.4 MEQ/L (3.5-5.1); SODIUM (NA) 140 MEQ/L (136-145)
[2016-10-10] MEDS ORDERED: VANCOMYCIN INJ 1,000 MG in SODIUM CHLOR 0.9% 250 ML INJ 250 ML IV ONE (06:45)
[2016-10-10] MEDS ORDERED: PIPERACIL-TAZO 3.375 GM PREMIX 50 ML IV ONE (06:45)
[2016-10-10 07:43] LABS: BACTERIA, URINE RARE /hpf; BLOOD, URINE NEG (NEG); GLUCOSE,URINE NEG (NEG); KETONE, URINE NEG (NEG); NITRITE,URINE NEG (NEG); SQUAMOUS EPITHELIAL CELL URINE 1 /hpf (0-5); URINE COLOR YELLOW (YELLW/STRAW)
[2016-10-10 07:45] LABS: COMMENT (UR) CULT NOT INDICATED; CULTURE IF INDICATED CULT NOT INDICATED
--- NOTE | 2016-10-10 07:55 | RADRPT ---
EXAM DATE/TIME: 10/10/2016 06:41 [facility] COMPARISON: No previous studies available for comparison. INDICATIONS : Pelvic pain. MEDICAL HISTORY : Myocardial infarction. Methicillin-resistant Staphylococcus aureus. Depression. Anxiety. Substance use. SURGICAL HISTORY : section. Left kidney surgery as kid. ENCOUNTER: Subsequent ACUITY: 2 weeks PAIN SCORE: 6/10 LOCATION: Bilateral pelvis MEASUREMENTS: UTERUS: 10.7 x 7.9 x 5.6 cm ENDOMETRIAL STRIPE: 5 mm RIGHT OVARY: 2.2 x 2.0 x 2.6 cm LEFT OVARY: 1.9 x 1.9 x 1.7 cm FINDINGS: UTERUS: The myometrium is slightly heterogeneous in appearance but otherwise unremarkable. There is no discre te myometrial mass. Small amount of fluid is identified within the endometrial canal. RIGHT OVARY: Ovary contains no mass or significant cystic lesion. LEFT OVARY: Ovary contains no mass or significant cystic lesion. MISCELLANEOUS: No free fluid. CONCLUSION: Small amount of residual fluid within the endometrial canal. No evidence of discrete myometrial or adnexal mass. Otherwise unremarkable exam. Paresh Lewis MD on October 10, 2016 at 7:49 Board Certified Radiologist. This report was verified electronically.
[2016-10-10] MEDS ORDERED: MORPHINE SULFATE 4 MG/ML INJ IV PUSH ONE (08:30)
--- NOTE | 2016-10-10 08:32 | PD ---
Physical Exam Narrative Received sign out from previous team to follow up US, UA and admit. Please see previous provider's note for details. This is a 25yo F who had a recent 18 days ago presents to the ED with worsening abdominal pain, nausea. Pt had a premature rupture of membranes. Pt was given vancomycin and zosyn by previous team. US showed small amount of residual fluid within endometrial canal. No evidence of discrete myometrial or adnexal mass. UA showed large leukocyte but WBC only 7. Pt reevaluated at bedside and waste machine tender on exam, above scar. No rebound tenderness or guarding. Will give morphine 4mg IV and admit. Discussed with resident physician and accepted for sepsis. Data Data Last Documented VS Vital Signs Date Time Temp Pulse Resp B/P Pulse Ox O2 Delivery O2 Flow Rate FiO2 10/10/16 07:59 80 16 105/59 98 Room Air 10/10/16 05:37 98.9 Orders Complete Blood Count With Diff (10/10/16 05:44) Comprehensive Metabolic Panel (10/10/16 05:44) Lipase (10/10/16 05:44) Urinalysis - C+S If Indicated (10/10/16 05:44) Iv Access Insert/Monitor (10/10/16 05:44) Ecg Monitoring (10/10/16 05:44) Oximetry (10/10/16 05:44) Ed Urine Pregnancytest Poc (10/10/16 05:44) Ketorolac Inj (Toradol Inj) (10/10/16 06:15) Sodium Chlor 0.9% 1000 Ml Inj (Ns 1000 M (10/10/16 06:15) Ondansetron Inj (Zofran Inj) (10/10/16 06:15) Gc And Chlamydia Pcr (10/10/16 06:20) Wet Prep Profile (10/10/16 06:20) Lactic Acid Sepsis Protocol (10/10/16 06:37) Blood Culture (10/10/16 06:37) Vancomycin Inj (Vancomycin Inj) (10/10/16 06:45) Piperacil-Tazo 3.375 Gm Premix (Zosyn 3. (10/10/16 06:45) Us Pelvis Comp W Transvaginal (10/10/16 05:44) Admit Order (Ed Use Only) (10/10/16 08:26) Morphine Inj (Morphine Inj) (10/10/16 08:30) Labs Laboratory Tests Test 10/10/16 10/10/16 10/10/16 10/10/16 05:50 06:25 07:05 07:20 White Blood Count 18.2 TH/MM3 Red Blood Count 3.81 MIL/MM3 Hemoglobin 11.5 GM/DL Hematocrit 34.7 % Mean Corpuscular Volume 91.1 FL Mean Corpuscular Hemoglobin 30.3 PG Mean Corpuscular Hemoglobin 33.2 % Concent Red Cell Distribution Width 13.3 % Platelet Count 168 TH/MM3 Mean Platelet Volume 8.6 FL Neutrophils (%) (Auto) 67.1 % Lymphocytes (%) (Auto) 26.5 % Monocytes (%) (Auto) 4.0 % Eosinophils (%) (Auto) 1.8 % Basophils (%) (Auto) 0.6 % Neutrophils # (Auto) 12.2 TH/MM3 Lymphocytes # (Auto) 4.8 TH/MM3 Monocytes # (Auto) 0.7 TH/MM3 Eosinophils # (Auto) 0.3 TH/MM3 Basophils # (Auto) 0.1 TH/MM3 CBC Comment DIFF FINAL Differential Comment Sodium Level 140 MEQ/L Potassium Level 4.4 MEQ/L Chloride Level 108 MEQ/L Carbon Dioxide Level 20.9 MEQ/L Anion Gap 11 MEQ/L Blood Urea Nitrogen 13 MG/DL Creatinine 0.81 MG/DL Estimat Glomerular Filtration 85 ML/MIN Rate Random Glucose 87 MG/DL Calcium Level 8.9 MG/DL Total Bilirubin 0.4 MG/DL Aspartate Amino Transf 24 U/L (AST/SGOT) Alanine Aminotransferase 21 U/L (ALT/SGPT) Alkaline Phosphatase 120 U/L Total Protein 7.3 GM/DL Albumin 3.2 GM/DL Lipase 64 U/L Clue Cells (Wet Prep) NONE SEEN Vaginal Trichomonas (Wet Prep) NONE SEEN Vaginal Yeast (Wet Prep) NONE SEEN Chlamydia trachomatis DNA NOT DETECTED (PCR) Neisseria gonorrhoeae DNA DETECTED (PCR) Lactic Acid Level 0.8 mmol/L Urine Color YELLOW Urine Turbidity CLEAR Urine pH 7.0 Urine Specific [place] 1.011 Urine Protein NEG mg/dL Urine Glucose (UA) NEG mg/dL Urine Ketones NEG mg/dL Urine Occult Blood NEG Urine Nitrite NEG Urine Bilirubin NEG Urine Urobilinogen LESS THAN 2.0 MG/DL Urine Leukocyte Esterase LARGE Urine RBC 1 /hpf Urine WBC 7 /hpf Urine Squamous Epithelial 1 /hpf Cells Urine Bacteria RARE /hpf Microscopic Urinalysis Comment CULT NOT INDICATED MDM Supervised Visit with [facility]: No Diagnosis Primary Impression: Pelvic pain Additional Impressions: Status post Sepsis Qualified Code: A41.9 - Sepsis, due to unspecified organism Admitting Information Admitting Physician Requests: Admit Quyen Busch DO Oct 10, 2016 08:31
--- NOTE | 2016-10-10 08:40 | HHI.HP ---
[facility] Service Family Medicine Primary Care Physician No Primary Care Physician Admission Diagnosis Sepsis Diagnoses: Chief Complaint: abdominal pain International Travel<30 Days: No Contact w/Intl Traveler<30days: No Known Affected Area: No History of Present Illness 25 y/o female presents with abdominal pain. States she had a on Sep. Says the "stitches store open". States she has had abdominal pain since the surgery and was slowly improving, but then got worse over the last day. Pain is a lower-mid abdomen, mainly above scar. The pain only occurs when moving /walking, no pain at rest. Describes the pain as cramping. Denies diarrhea/ constipation. Endorses nausea, no vomiting. Denies fever/chills. Had term C- section due to breech presentation, did have ROM 2 days before delivery. , first delivery was vaginal. Denies any sexual intercourse since surgery. Still has lochia since surgery, but has greatly improved. Endorses headache. Denies history of PID, STI. Has taken tylenol, which helps somewhat with the pain. Also states she had an abscess on her left posterior thigh that drained a couple days ago. Has a history of MRSA. (Brandon Jensen MD R1) Review of Systems Constitutional: DENIES: Fever, Weight gain, Weight loss, Chills, Night Sweats Eyes: DENIES: Blurred vision, Eye pain Ears, nose, mouth, throat: DENIES: Throat pain, Running Nose, Epistaxis Respiratory: DENIES: Cough, Shortness of breath Cardiovascular: DENIES: Chest pain, Palpitations, Lower Extremity Edema Gastrointestinal: COMPLAINS OF: Abdominal pain, Nausea, DENIES: Bloody stools , Constipation, Diarrhea, Vomiting Genitourinary: DENIES: Urinary frequency, Dysuria, Vaginal discharge Musculoskeletal: DENIES: Joint pain, Stiffness Integumentary: COMPLAINS OF: Rash, DENIES: Breast masses, Nipple discharge Hematologic/lymphatic: DENIES: Bruising, Lymphadenopathy Neurologic: COMPLAINS OF: Headache, DENIES: Abnormal gait, Localized weakness Psychiatric: DENIES: Anxiety, Confusion, Mood changes (Brandon Jensen MD R1) Past Family Social History Past Medical History Denies Past Surgical History Kidney surgery at 4 y/o Reported Medications Reported Meds & Active Scripts Active (Brandon Jensen MD R1) Allergies: Coded Allergies: Latex (Verified Allergy, Severe, 10/10/16) *MDRO Multi-Drug Resistant Organism (Verified Adverse Reaction, Unknown, ) MRSA (abdomen-02/2016) Active Ordered Medications Active Medications Ketorolac Tromethamine 15 mg 15 mg ONCE ONCE IV PUSH Last administered on 06:20; Admin Dose 15 MG; Start 10/10/16 at 06:15; Stop 10/10/16 at 06:16; Status DC Morphine Sulfate (Morphine Inj) 4 mg ONCE ONCE IV PUSH; Start 10/10/16 at 08:30 ; Stop 10/10/16 at 08:31; Status DC Ondansetron HCl 4 mg 4 mg ONCE ONCE IV PUSH Last administered on 10/10/16 06: 20; Admin Dose 4 MG; Start 10/10/16 at 06:15; Stop 10/10/16 at 06:16; Status DC Piperacillin Sod/ Tazobactam Sod (Zosyn 3.375 Gm Premix) 50 ml @ 100 mls/hr ONCE ONCE IV Last administered on 10/10/16 07:49; Admin Dose 100 MLS/HR; Start 10/10/16 at 06:45; Stop 10/10/16 at 07:14; Status DC Sodium Chloride (NS 1000 ml Inj) 1,000 ml @ 999 mls/hr BOLUS ONCE IV Last administered on 10/10/16 06:20; Admin Dose 999 MLS/HR; Start 10/10/16 at 06:15 ; Stop 10/10/16 at 07:15; Status DC Vancomycin HCl 1000 mg/Sodium Chloride 250 ml @ 250 mls/hr ONCE ONCE IV Last administered on 10/10/16 08:00; Admin Dose 250 MLS/HR; Start 10/10/16 at 06:45 ; Stop 10/10/16 at 07:44; Status DC Family History Parents healthy Siblings healthy Social History Unemployed Smokes 5 cig/day. No alcohol use Denies illicit drug use (Brandon Jensen MD R1) Physical Exam Vital Signs Vital Signs Date Time Temp Pulse Resp B/P Pulse Ox O2 Delivery O2 Flow Rate FiO2 10/10/16 07:59 80 16 105/59 98 Room Air 10/10/16 05:56 114 16 100 Room Air 10/10/16 05:37 98.9 103 22 142/92 100 Physical Exam GENERAL: Lying comfortably in bed, NAD SKIN: Area of erythema on left posterior thigh. Tender to palpation. Warm to touch. Wound in center of erythema. Indurated. HEAD: Atraumatic. Normocephalic. No temporal or scalp tenderness. EYES: Pupils equal round and reactive. Extraocular motions intact. No scleral icterus. No injection or drainage. ENT: Nose without bleeding, purulent drainage or septal hematoma. Throat without erythema, tonsillar hypertrophy or exudate. Uvula midline. Airway patent. NECK: Trachea midline. No JVD or lymphadenopathy. Supple, nontender. CARDIOVASCULAR: Regular rate and rhythm without murmurs, gallops, or rubs. RESPIRATORY: Clear to auscultation. Breath sounds equal bilaterally. No wheezes , rales, or rhonchi. GASTROINTESTINAL: Soft, non-distended. Diffusely tender to palpation in suprapubic area. scar present on lower aspect of abdomen. No drainage or discharge. Pt states there was pus-like drainage the other day. No surrounding erythema. BS+. No masses MUSCULOSKELETAL: Extremities without clubbing, cyanosis, or edema. No joint tenderness, effusion, or edema noted. No calf tenderness. NEUROLOGICAL: Awake and alert. Cranial nerves II through XII intact. Motor and sensory grossly within normal limits. Five out of 5 muscle strength in all muscle groups. Normal speech. Laboratory Laboratory Tests Test 10/10/16 10/10/16 10/10/16 10/10/16 05:50 06:25 07:05 07:20 White Blood Count 18.2 Red Blood Count 3.81 Hemoglobin 11.5 Hematocrit 34.7 Mean Corpuscular Volume 91.1 Mean Corpuscular Hemoglobin 30.3 Mean Corpuscular Hemoglobin 33.2 Concent Red Cell Distribution Width 13.3 Platelet Count 168 Mean Platelet Volume 8.6 Neutrophils (%) (Auto) 67.1 Lymphocytes (%) (Auto) 26.5 Monocytes (%) (Auto) 4.0 Eosinophils (%) (Auto) 1.8 Basophils (%) (Auto) 0.6 Neutrophils # (Auto) 12.2 Lymphocytes # (Auto) 4.8 Monocytes # (Auto) 0.7 Eosinophils # (Auto) 0.3 Basophils # (Auto) 0.1 CBC Comment DIFF FINAL Differential Comment Sodium Level 140 Potassium Level 4.4 Chloride Level 108 Carbon Dioxide Level 20.9 Anion Gap 11 Blood Urea Nitrogen 13 Creatinine 0.81 Estimat Glomerular Filtration 85 Rate Random Glucose 87 Calcium Level 8.9 Total Bilirubin 0.4 Aspartate Amino Transf 24 (AST/SGOT) Alanine Aminotransferase 21 (ALT/SGPT) Alkaline Phosphatase 120 Total Protein 7.3 Albumin 3.2 Lipase 64 Clue Cells (Wet Prep) NONE SEEN Vaginal Trichomonas (Wet Prep) NONE SEEN Vaginal Yeast (Wet Prep) NONE SEEN Lactic Acid Level 0.8 Urine Color YELLOW Urine Turbidity CLEAR Urine pH 7.0 Urine Specific [place] 1.011 Urine Protein NEG Urine Glucose (UA) NEG Urine Ketones NEG Urine Occult Blood NEG Urine Nitrite NEG Urine Bilirubin NEG Urine Urobilinogen LESS THAN 2.0 Urine Leukocyte Esterase LARGE Urine RBC 1 Urine WBC 7 Urine Squamous Epithelial 1 Cells Urine Bacteria RARE Microscopic Urinalysis Comment CULT NOT INDICATED Date/Time Procedure Status Source Growth 10/10/16 07:20 Aerobic Blood Culture Received Blood Peripheral Pending 10/10/16 07:20 Anaerobic Blood Culture Received Blood Peripheral Pending (Brandon Jensen MD R1) Result Diagram: 10/10/16 0550 10/10/16 0550 Imaging Last Impressions Pelvis Ultrasound 10/10/16 0544 Signed Impressions: Service Date/Time: Monday, October 10, 2016 06:41 - CONCLUSION: Small amount of residual fluid within the endometrial canal. No evidence of discrete myometrial or adnexal mass. Otherwise unremarkable exam. Paresh Lewis MD (Brandon Jensen MD R1) Septic Shock Reassessment Heart: Regular rate and rhythm Lungs: Clear Skin: Warm, Dry Peripheral Pulses: Bounding Right Radial Bounding Left Radial Bounding Right Popliteal Bounding Left Popliteal Bounding Right Dorsalis Pedis Bounding Left Dorsalis Pedis Bounding Right Posterior Tibial Bounding Left Posterior Tibial Capillary Refill: Brisk (Brandon Jensen MD R1) Assessment and Plan Assessment and Plan 25 y/o with history of recent presents with abdominal pain. Found to have cellulitis on left posterior thigh with history of MRSA. Meets sepsis criteria with leukocytosis and tachycardia. Will admit for IV antibiotics. Code Status Full Discussed Condition With Dr. Hutson wdw Dr. Vu (Brandon Jensen MD R1) Attending Attestation THIS CASE WAS DISCUSSED WITH THE RESIDENT PHYSICIANS. I HAVE REVIEWED THE RECORD AND AGREE WITH THE ABOVE NOTE AND PLAN OF CARE WAS DISCUSSED. I HAVE AUTHORIZED THE ORDER FOR ADMISSION TO AN IN-PATIENT STATUS. (Renzo Vu MD) Problem List: (1) Lower abdominal pain Status: Acute Plan: DDx: Endometritis, PID, colitis, constipation, appendicitis, urolithiasis Soft, diffusely tender in lower abdomen. Surgical site non-infected WBC 18.2. Tachycardic on admission, resolved UA: large LE, 7 WBC, rare bacteria Pelvic US: small amount of residual fluid within the endometrial canal. No evidence of mass. CT abdomen/pelvis: negative for acute disease Genital swab positive for Gonorrhea Plan - Start Gentamicin 4mg/kg daily - Clindamycin 900mg q8H - Zofran PRN nausea - Marylin-colace PRN constipation - Ibuprofen q6H pain - Tylenol PRN fever - [place] q4H pain 6-10 - NS @ 100mls/hr ED - Given 3.375g of Zosyn - Given 1g of Vanc - 1 L bolus of NS. (2) Sepsis Status: Acute Plan: WBC 18.2, Tachycardia to 114 on admission. Lactic acid 0.8 Abdominal pain, found to have cellulitis as source of infection No signs of organ dysfunction - Antibiotics as above - Monitor vitals - CBC in AM (3) Cellulitis Status: Acute Plan: 6x6cm erythematous area on left posterior thigh. Indurated. Wound in center. Afebrile. WBC 18.2 History of MRSA Given 1g Vancomycin in ED - Continue Vancomycin, pharmacy consult - NS @ 100mls/hr - Blood cultures pending - Pain control as above - Elevate affected area - (4) FEN Status: Acute Plan: Fluids: NS @ 100mls/hr Electrolytes: wnl. continue to monitor Nutrition: regular diet DVT ppx: SCDs (Brandon Jensen MD R1) Physician Certification 2 Midnight Certification Type: Admission for Inpatient Services Order for Inpatient Services The services are ordered in accordance with Medicare regulations or non- Medicare payer requirements, as applicable. In the case of services not specified as inpatient-only, they are appropriately provided as inpatient services in accordance with the 2-midnight benchmark. Estimated LOS (days): 2 days is the estimated time the patient will need to remain in the hospital, assuming treatment plan goals are met and no additional complications. Post-Hospital Plan: Home (Brandon Jensen MD R1) Problem Qualifiers (1) Sepsis: Qualified Code: A41.9 - Sepsis, due to unspecified organism (2) Cellulitis: Qualified Code: L03.116 - Cellulitis of left lower extremity Brandon Jensen MD R1 Oct 10, 2016 08:39 Renzo Vu MD Oct 10, 2016 19:37
[2016-10-10] MEDS ORDERED: NALOXONE HCL 0.4 MG/ML AMP IV PRN (09:15)
[2016-10-10] MEDS ORDERED: SODIUM CHLORIDE 0.9% FLUSH 5 ML FLUSH FLUSH PRN (09:15)
[2016-10-10] MEDS ORDERED: ONDANSETRON HCL 4 MG/2 ML VIAL IVP PRN (09:15)
[2016-10-10] MEDS ORDERED: DOCUSATE SODIUM 50 MG/SENNA 8.6 MG TAB PO PRN (09:15)
[2016-10-10] MEDS ORDERED: ACETAMINOPHEN 325 MG TAB PO PRN (09:15)
[2016-10-10] MEDS ORDERED: Vancomycin Consult Pharmacy 1 EA XX SCH (09:30)
[2016-10-10] MEDS: IBUPROFEN 400 MG TAB PO SCH ×3 (10:42→17:27)
[2016-10-10] MEDS: SODIUM CHLOR 0.9% 1000 ML INJ 1,000 ML IV SCH ×2 (10:55→21:39)
[2016-10-10] MEDS ORDERED: DIATRIZOATE MEGLUM/DIATRIZOATE SOD 9 ML CUP PO ONE (11:15)
[2016-10-10 11:48] LABS: CHLAMYDIA PCR NOT DETECTED (NOT DETECT); NEISSERIA PCR DETECTED (NOT DETECT)
[2016-10-10] MEDS ORDERED: IOHEXOL 350 MG/ML 10 ML VIAL (for RAD DIAG) IV ONE (14:00)
--- NOTE | 2016-10-10 14:18 | RADRPT ---
EXAM DATE/TIME: 10/10/2016 13:56 [facility] COMPARISON: US PELVIS COMP W/TRANSVAGINAL, October 10, 2016, 6:41. INDICATIONS : Abdomen pain after section two weeks ago. IV CONTRAST: 67 cc Omnipaque 350 (iohexol) IV ORAL CONTRAST: Prescribed oral contrast ingested. RADIATION DOSE: 4.61 CTDIvol (mGy) MEDICAL HISTORY : Cardiovascular disease. SURGICAL HISTORY : section. ENCOUNTER: Initial ACUITY: 1 day PAIN SCALE: 8/10 LOCATION: Bilateral abdomen. TECHNIQUE: Volumetric scanning of the abdomen and pelvis was performed. Using automated exposure control and adjustment of the mA and/or kV according to patient size, radiation dose was kept as low as reasonably achievable to obtain optimal diagnostic quality images. FINDINGS: LOWER LUNGS: The visualized lower lungs are clear. LIVER: Homogeneous density without lesion. There is no dilation of the biliary tree. No calcifi ed gallstones. Gallbladder seen as a luminal structure without wall thickening SPLEEN: Normal size without lesion. PANCREAS: Within normal limits. KIDNEYS: Kidney is enlarged relative to the right measuring 12 cm vertical height and old right 8 .3 cm with very areas of cortical retraction of the right kidney which represents remote inflammatory process such as pyelonephritis.. ADRENAL GLANDS: Within normal limits. VASCULAR: There is no aortic aneurysm. BOWEL/MESENTERY: The stomach, small bowel, and colon demonstrate no acute abnormality. There is no free intraperitoneal air or fluid. ABDOMINAL WALL: Within normal limits. RETROPERITONEUM: There is no lymphadenopathy. BLADDER: No wall thickening or mass. REPRODUCTIVE: Within normal limits. INGUINAL: There is no lymphadenopathy or hernia. MUSCULOSKELETAL: Within normal limits for patient age. CONCLUSION: No acute intra-abdominal or pelvic process. Right kidney is small with areas of corti liana contraction consistent with remote inflammatory process such as obstructive disease or pyelonephr itis. Compensatory enlargement of the left kidney. Abelino Hilliard MD on October 10, 2016 at 14:14 Board Certified Radiologist. This report was verified electronically.
[2016-10-10] MEDS: ACETAMINOPHEN/HYDROcodone 325 MG/7.5 MG TAB PO PRN ×2 (15:09→21:42)
[2016-10-10] MEDS: CLINDAMYCIN INJ 900 MG in SODIUM CHLORIDE 0.9% INJ 100 ML IV SCH (15:09)
[2016-10-10] MEDS: GENTAMICIN IV SCH (16:26)
[2016-10-10] MEDS: SODIUM CHLORIDE 0.9% IV SCH (16:26)
[2016-10-10] MEDS ORDERED: VANCOMYCIN INJ 500 MG in SODIUM CHLOR 0.9% 250 ML INJ 250 ML IV SCH (20:00)
[2016-10-10] MEDS: SODIUM CHLORIDE 0.9% FLUSH 5 ML FLUSH FLUSH SCH (21:00)
[2016-10-11] VITALS (8 sets, daily range): BP systolic 97–126; BP diastolic 56–87; PULSE 58–77; RESP 16–18; TEMP 97.8–98.8; O2SAT 96–99
[2016-10-11] MEDS: CLINDAMYCIN INJ 900 MG in SODIUM CHLORIDE 0.9% INJ 100 ML IV SCH ×2 (01:07→05:31)
[2016-10-11] MEDS: IBUPROFEN 400 MG TAB PO SCH ×4 (01:07→17:57)
[2016-10-11] MEDS: SODIUM CHLOR 0.9% 1000 ML INJ 1,000 ML IV SCH ×2 (05:15→15:32)
[2016-10-11 06:54] LABS: AUTOMATED NEUTROPHIL # 3.2 TH/MM3 (1.8-7.7); BASOPHIL # 0.1 TH/MM3 (0-0.2); BASOPHIL % 0.7 % (0.0-2.0); EOSINOPHIL # 0.3 TH/MM3 (0-0.4); EOSINOPHIL % 4.3 % (0.0-4.0); HEMO FLAGS DIFF FINAL; LYMPHOCYTE # 3.5 TH/MM3 (1.0-4.8); MEAN CELL VOLUME 91.6 FL (80.0-100.0); MEAN CORPUSCULAR HEMOGLOBIN 30.3 PG (27.0-34.0); MONO % 5.3 % (0.0-8.0); NEUT % 42.7 % (16.0-70.0); PLATELET COUNT 309 TH/MM3 (150-450); RED BLOOD COUNT 3.27 MIL/MM3 (4.00-5.30); RED CELL DISTRIBUTION WIDTH 13.6 % (11.6-17.2); WHITE BLOOD COUNT 7.5 TH/MM3 (4.0-11.0)
[2016-10-11 07:30] LABS: ALKALINE PHOSPHATASE 114 U/L (45-117); ALT (GPT) 24 U/L (10-53); ANION GAP 8 MEQ/L (5-15); AST (GOT) 19 U/L (15-37); BICARBONATE 24.1 MEQ/L (21.0-32.0); BLOOD UREA NITROGEN 11 MG/DL (7-18); CHLORIDE 114 MEQ/L (98-107); GLOMERULAR FILTRATION RATE 91 ML/MIN (>89); POTASSIUM 4.1 MEQ/L (3.5-5.1); SODIUM (NA) 146 MEQ/L (136-145); TOTAL BILIRUBIN ADULT 0.1 MG/DL (0.2-1.0)
--- NOTE | 2016-10-11 08:17 | HHI.FPPN ---
Subjective Remarks FM Attending Note: Patient seen and examined. S: Chart and all resident physician notes reviewed. In summary this is a 25 year old female who was admitted with an admission diagnosis of Sepsis and abdominal pain. This patient had undergone a section delivery on September 22 of this year. Her workup since admission shows that she had a positive PCR for gonorrhea which suggested PID as the etiology of her lower abdominal pain. She also had a skin abscess of the left posterior upper thigh which did drain spontaneously. Since her admission the patient notes that her abdominal pain has significantly improved. She is still slightly nauseated and has not yet eaten a significant amount of food. No fever or chills are noted. Objective Vitals Vital Signs Date Time Temp Pulse Resp B/P Pulse Ox O2 Delivery O2 Flow Rate FiO2 10/11/16 05:00 97.8 67 16 113/70 97 10/11/16 01:00 97.9 64 16 97/56 98 10/10/16 21:30 98.3 71 16 106/59 98 10/10/16 20:00 69 10/10/16 16:30 98.4 74 18 116/63 96 10/10/16 12:35 65 16 103/56 100 Room Air 10/10/16 12:22 98 21 10/10/16 10:43 74 16 122/63 100 Room Air I/O 10/10/16 10/10/16 10/10/16 10/11/16 10/11/16 10/11/16 07:00 15:00 23:00 07:00 15:00 23:00 Intake Total 1511 ml 240 ml Balance 1511 ml 240 ml Intake Oral 480 ml 240 ml IV Total 1031 ml # Voids 1 Result Diagram: 10/11/16 0606 10/11/16 0606 Other Results Item Value Date Time Neisseria gonorrhoeae DNA (PCR) DETECTED 10/10/16 0625 Total Bilirubin 0.1 MG/DL L 10/11/16 0606 Aspartate Amino Transf (AST/SGOT) 19 U/L 10/11/16 0606 Alanine Aminotransferase (ALT/SGPT) 24 U/L 10/11/16 0606 Alkaline Phosphatase 114 U/L 10/11/16 0606 Lipase 64 U/L L 10/10/16 0550 Urine Specific [place] 1.011 10/10/16 0720 Urine Nitrite NEG 10/10/16 0720 Urine Leukocyte Esterase LARGE H 10/10/16 0720 Urine WBC 7 /hpf H 10/10/16 0720 Urine RBC 1 /hpf 10/10/16 0720 Clue Cells (Wet Prep) NONE SEEN 10/10/16 0625 Vaginal Trichomonas (Wet Prep) NONE SEEN 10/10/16 0625 Vaginal Yeast (Wet Prep) NONE SEEN 10/10/16 0625 Imaging Last 48 hours Impressions Pelvis Ultrasound 10/10/16 0544 Signed Impressions: Service Date/Time: Monday, October 10, 2016 06:41 - CONCLUSION: Small amount of residual fluid within the endometrial canal. No evidence of discrete myometrial or adnexal mass. Otherwise unremarkable exam. Paresh Lewis MD Abdomen/Pelvis CT 10/10/16 0000 Signed Impressions: Service Date/Time: Monday, October 10, 2016 13:56 - CONCLUSION: No acute intra-abdominal or pelvic process. Right kidney is small with areas of cortical contraction consistent with remote inflammatory process such as obstructive disease or pyelonephritis. Compensatory enlargement of the left kidney. Abelino Hilliard MD Objective Remarks O. CONSTITUTIONAL/GEN: normally nourished, in NAD. EYES: conjunctiva normal, PERRLA, EOMI. LUNGS: clear A-P, respiratory effort is normal. CARDIOVASCULAR: RR without murmur or gallop. No significant edema. GI/ABD: soft without masses, without organomegaly. The incision for the C- section as well closed without evidence of wound infection. She has some very mild direct tenderness to palpation on both the right and left lower quadrants but no rigidity or rebound is noted. : no CVA tenderness NEURO: No focal deficits. SKIN: color normal. There is a 1 cm opening in the skin on the posterior upper left thigh. No significant erythema is present at this time. There is still some induration of tissue surrounding the opening but no fluctuance that would suggest persistence of the abscess. MUSC: back is normal in appearance. Extremities are normal in appearance. PSYCH/MENTAL STATUS: Alert and oriented x 3. A/P Assessment and Plan 25 y/o with history of recent presents with abdominal pain. Found to have cellulitis on left posterior thigh with history of MRSA. Meets sepsis criteria with leukocytosis and tachycardia. Will admit for IV antibiotics. Problem List: (1) Lower abdominal pain Status: Acute Plan: DDx: Endometritis, PID, colitis, constipation, appendicitis, urolithiasis Soft, diffusely tender in lower abdomen. Surgical site non-infected WBC 18.2. Tachycardic on admission, resolved UA: large LE, 7 WBC, rare bacteria Pelvic US: small amount of residual fluid within the endometrial canal. No evidence of mass. CT abdomen/pelvis: negative for acute disease Genital swab positive for Gonorrhea Plan - Start Gentamicin 4mg/kg daily - Clindamycin 900mg q8H - Zofran PRN nausea - Marylin-colace PRN constipation - Ibuprofen q6H pain - Tylenol PRN fever - [place] q4H pain 6-10 - NS @ 100mls/hr ED - Given 3.375g of Zosyn - Given 1g of Vanc - 1 L bolus of NS 10/11/16 The positive PCR test and her clinical presentation would suggest PID as etiology of her abdominal pain. Since admission her abdominal pain has significantly improved. She is afebrile and her white blood cell count has trended down. She also has a skin abscess on the left upper posterior leg for which she was started on antibiotic therapy. This lesion has now drained spontaneously. She did have a past history of MRSA. For now, to treat both infections we'll continue her on clindamycin and gentamicin but will stop the vancomycin. If she is able to eat breakfast and lunch will plan to switch her clindamycin to oral therapy later today. For now we'll continue the IV gentamicin. If she is able to tolerate oral therapy and doing well in the morning we'll plan to discharge her to complete an outpatient regimen of antibiotics with clindamycin orally.. (2) Sepsis Status: Acute Plan: WBC 18.2, Tachycardia to 114 on admission. Lactic acid 0.8 Abdominal pain, found to have cellulitis as source of infection No signs of organ dysfunction - Antibiotics as above - Monitor vitals - CBC in AM (3) Cellulitis Status: Acute Plan: 6x6cm erythematous area on left posterior thigh. Indurated. Wound in center. Afebrile. WBC 18.2 History of MRSA Given 1g Vancomycin in ED - Continue Vancomycin, pharmacy consult - NS @ 100mls/hr - Blood cultures pending - Pain control as above - Elevate affected area 10/11/16 Antibiotic therapy as noted above. Cultures were obtained and will modify above treatment if culture results indicate a different antibiotic would be more appropriate. - (4) FEN Status: Acute Plan: Fluids: NS @ 100mls/hr Electrolytes: wnl. continue to monitor Nutrition: regular diet DVT ppx: SCDs Problem Qualifiers (1) Sepsis: Qualified Code: A41.9 - Sepsis, due to unspecified organism (2) Cellulitis: Qualified Code: L03.116 - Cellulitis of left lower extremity Renzo Vu MD Oct 11, 2016 08:17
[2016-10-11] MEDS: ACETAMINOPHEN/HYDROcodone 325 MG/7.5 MG TAB PO PRN ×2 (08:59→17:56)
[2016-10-11] MEDS: SODIUM CHLORIDE 0.9% FLUSH 5 ML FLUSH FLUSH SCH ×2 (09:00→21:00)
[2016-10-11] MEDS ORDERED: INFLUENZA VIRUS VACCINE (QUADRIVALENT) 0.5 ML SYR IM ONE (10:00)
[2016-10-11] MEDS ORDERED: PNEUMOCOCCAL POLYVALENT INJ 25 MCG/0.5 ML SYR IM ONE (10:00)
[2016-10-11] MEDS: CLINDAMYCIN 150 MG CAP PO SCH ×2 (15:29→17:56)
[2016-10-11] MEDS: GENTAMICIN IV SCH (15:30)
[2016-10-11] MEDS: SODIUM CHLORIDE 0.9% IV SCH (15:30)
[2016-10-12] VITALS: BP 135/61; PULSE 71; RESP 18; TEMP 98; O2SAT 96
[2016-10-12] MEDS: IBUPROFEN 400 MG TAB PO SCH ×4 (00:33→16:54)
[2016-10-12] MEDS: CLINDAMYCIN 150 MG CAP PO SCH ×4 (00:33→16:55)
[2016-10-12] MEDS: SODIUM CHLOR 0.9% 1000 ML INJ 1,000 ML IV SCH ×2 (00:33→12:20)
[2016-10-12 04:00] VITALS: BP 125/70; PULSE 60; RESP 18; TEMP 98; O2SAT 98
[2016-10-12] MEDS ORDERED: PHARMACY ORDERED LAB XX ONE (07:45)
[2016-10-12 08:02] VITALS: BP 129/89; PULSE 64; RESP 20; TEMP 98.3; O2SAT 98
[2016-10-12 08:06] LABS: BASOPHIL % 0.7 % (0.0-2.0); EOSINOPHIL # 0.3 TH/MM3 (0-0.4); HEMATOCRIT 30.1 % (35.0-46.0); HEMO FLAGS DIFF FINAL; LYMPH % 41.2 % (9.0-44.0); LYMPHOCYTE # 2.6 TH/MM3 (1.0-4.8); MEAN CELL VOLUME 91.4 FL (80.0-100.0); MEAN CORPUSCULAR HEMOGLOBIN 29.8 PG (27.0-34.0); MEAN CORPUSCULAR HGB CONC 32.6 % (32.0-36.0); MONO % 5.2 % (0.0-8.0); NEUT % 47.9 % (16.0-70.0); PLATELET COUNT 310 TH/MM3 (150-450); RED BLOOD COUNT 3.29 MIL/MM3 (4.00-5.30); RED CELL DISTRIBUTION WIDTH 13.3 % (11.6-17.2); WHITE BLOOD COUNT 6.3 TH/MM3 (4.0-11.0)
[2016-10-12 08:48] LABS: BICARBONATE 23.1 MEQ/L (21.0-32.0)
[2016-10-12] MEDS: SODIUM CHLORIDE 0.9% FLUSH 5 ML FLUSH FLUSH SCH (09:00)
--- NOTE | 2016-10-12 10:31 | HHI.FPPN ---
Subjective Remarks Patient seen and examined this morning. No acute events overnight. Patient states her pain is a little improved. Was aggravated after walking around. Denies any fever/chills, nausea/vomiting, chest pain, SOB, leg pain. Tolerated her PO medication yesterday. Is eating some, doesn't have much of appetite. ( Brandon Jensen MD R1) Objective Vitals Vital Signs Date Time Temp Pulse Resp B/P Pulse Ox O2 Delivery O2 Flow Rate FiO2 10/12/16 08:02 98.3 64 20 129/89 98 10/12/16 04:00 98.0 60 18 125/70 98 10/12/16 00:00 98.0 71 18 135/61 96 10/11/16 22:00 77 10/11/16 20:00 98.8 73 18 110/70 97 10/11/16 17:55 99 21 10/11/16 16:00 98.2 76 18 126/72 99 10/11/16 12:00 98.3 67 18 125/61 99 I/O 10/11/16 10/11/16 10/11/16 10/12/16 10/12/16 10/12/16 07:00 15:00 23:00 07:00 15:00 23:00 Intake Total 840 ml 1710 ml 1180 ml 920 ml Balance 840 ml 1710 ml 1180 ml 920 ml Intake Oral 240 ml 720 ml 380 ml 120 ml IV Total 600 ml 990 ml 800 ml 800 ml # Voids 1 3 3 2 # Bowel Movements 0 2 0 (Brandon Jensen MD R1) Result Diagram: 10/12/1646 10/12/16645 Objective Remarks O. CONSTITUTIONAL/GEN: normally nourished, in NAD. EYES: conjunctiva normal, PERRLA, EOMI. LUNGS: clear A-P, respiratory effort is normal. CARDIOVASCULAR: RR without murmur or gallop. No significant edema. GI/ABD: soft without masses, without organomegaly. The incision for the C- section as well closed without evidence of wound infection. Diffusely tender to palpation in lower abdominal area. : no CVA tenderness NEURO: No focal deficits. SKIN: color normal. There is a 1 cm opening in the skin on the posterior upper left thigh. No significant erythema is present at this time. There is still some induration of tissue surrounding the opening but no fluctuance that would suggest persistence of the abscess. MUSC: back is normal in appearance. Extremities are normal in appearance. PSYCH/MENTAL STATUS: Alert and oriented x 3. (Brandon Jensen MD R1) A/P Assessment and Plan 25 y/o with history of recent presents with abdominal pain. Gonorrhea infection, possibly PID. Treating with antibiotics and treating the cellulitis Discharge Planning 1-2 days (Brandon Jensen MD R1) Attending Attestation Patient seen and examined. Case reviewed and discussed with the resident team. Agree with plan of care as discussed with me and documented in the resident note. (Renzo Vu MD) Problem List: (1) Gonococcal PID, female Status: Acute Plan: Pelvic US: small amount of residual fluid within the endometrial canal. No evidence of mass. CT abdomen/pelvis: negative for acute disease Genital swab positive for Gonorrhea Plan - Continue Gentamicin 4mg/kg daily - Switched to PO Clindamycin 450mg q6H - Zofran PRN nausea - [place]lin-colace PRN constipation - Ibuprofen q6H pain - Tylenol PRN fever - [place] q4H pain 6-10 - NS @ 100mls/hr (2) Cellulitis Status: Acute Plan: Erythema improving. Indurated. Wound in center. Afebrile. WBC trending down History of MRSA Given 1g Vancomycin in ED Blood culture NGTD - Continue PO Clindamycin, treating gonorrhea and cellulitis - NS @ 100mls/hr - Pain control as above - Elevate affected area (3) Sepsis Status: Resolved Plan: Sepsis resolved WBC trending down. Afebrile, VSS - Antibiotics as above - Monitor vitals (4) FEN Status: Acute Plan: Fluids: NS @ 100mls/hr Electrolytes: wnl. continue to monitor Nutrition: regular diet DVT ppx: SCDs (Brandon Jensen MD R1) Problem Qualifiers (1) Cellulitis: Qualified Code: L03.116 - Cellulitis of left lower extremity (2) Sepsis: Qualified Code: A41.9 - Sepsis, due to unspecified organism Brandon Jensen MD R1 Oct 12, 2016 10:31 Renzo Vu MD Oct 12, 2016 16:19
[2016-10-12 10:42] VITALS: O2SAT 95
[2016-10-12 12:02] VITALS: BP 119/57; PULSE 66; RESP 20; TEMP 98.6; O2SAT 98
[2016-10-12] MEDS: ACETAMINOPHEN/HYDROcodone 325 MG/7.5 MG TAB PO PRN (12:39)
[2016-10-12 14:01] VITALS: BP 121/79; PULSE 64; RESP 20; TEMP 98.2; O2SAT 99
--- NOTE | 2016-10-12 15:18 | HHI.DCPOC ---
Discharge Care Plan Diagnosis: (1) Cellulitis (2) Gonococcal PID, female (3) Lower abdominal pain (4) Status post Goals to Promote Your Health * To prevent worsening of your condition and complications * To maintain your health at the optimal level Take antibiotics to completion Pelvic rest times 6 weeks Use a condom during sexual activity Directions to Meet Your Goals Take your medications as prescribed Follow your dietary instruction Follow activity as directed Keep your appointments as scheduled Take your immunizations and boosters as scheduled If your symptoms worsen call your PCP, if no PCP go to Urgent Care Center or Emergency Room Smoking is Dangerous to Your Health. Avoid second hand smoke Call the 24-hour hour crisis hotline for domestic abuse at Arben Hutson MD R2 Oct 12, 2016 15:17
[2016-10-12] MEDS: GENTAMICIN IV SCH (16:56)
[2016-10-12] MEDS: SODIUM CHLORIDE 0.9% IV SCH (16:56)
[2016-10-12] MEDS ORDERED: CLIN150 PO (17:30)
--- NOTE | 2016-10-13 09:19 | HHI.DS ---
Discharge Summary Admission Date Oct 10, 2016 at 08:28 Discharge Date: Oct 12, 2016 Admitting Diagnosis Sepsis (1) Gonococcal PID, female Diagnosis: Principal Plan: Pelvic US: small amount of residual fluid within the endometrial canal. No evidence of mass. CT abdomen/pelvis: negative for acute disease Genital swab positive for Gonorrhea Plan - Continue Gentamicin 4mg/kg daily - Switched to PO Clindamycin 450mg q6H - Zofran PRN nausea - Marylin-colace PRN constipation - Ibuprofen q6H pain - Tylenol PRN fever - Jennings q4H pain 6-10 - NS @ 100mls/hr (2) Cellulitis Diagnosis: Principal Plan: Erythema improving. Indurated. Wound in center. Afebrile. WBC trending down History of MRSA Given 1g Vancomycin in ED Blood culture NGTD - Continue PO Clindamycin, treating gonorrhea and cellulitis - NS @ 100mls/hr - Pain control as above - Elevate affected area (3) Sepsis Diagnosis: Principal Plan: Sepsis resolved WBC trending down. Afebrile, VSS - Antibiotics as above - Monitor vitals (4) FEN Diagnosis: Secondary Plan: Fluids: NS @ 100mls/hr Electrolytes: wnl. continue to monitor Nutrition: regular diet DVT ppx: SCDs Consultants None Procedures None Brief History 25 y/o female presents with abdominal pain. States she had a on Sep. Says the "[employer] store [employer]". States she has had abdominal pain since the surgery and was slowly improving, but then got worse over the last day. Pain is a lower-mid abdomen, mainly above scar. The pain only occurs when moving /walking, no pain at rest. Describes the pain as cramping. Denies diarrhea/ constipation. Endorses nausea, no vomiting. Denies fever/chills. Had term C- section due to breech presentation, did have ROM 2 days before delivery. , first delivery was vaginal. Denies any sexual intercourse since surgery. Still has lochia since surgery, but has greatly improved. Endorses headache. Denies history of PID, STI. Has taken tylenol, which helps somewhat with the pain. Also states she had an abscess on her left posterior thigh that drained a couple days ago. Has a history of MRSA. CBC/BMP: 10/12/16 0646 10/12/16 0646 Significant Findings Laboratory Tests Test 10/11/16 10/12/16 06:06 06:46 Red Blood Count 3.27 MIL/MM3 3.29 MIL/MM3 (4.00-5.30) (4.00-5.30) Hemoglobin 9.9 GM/DL 9.8 GM/DL (11.6-15.3) (11.6-15.3) Hematocrit 30.0 % 30.1 % (35.0-46.0) (35.0-46.0) Lymphocytes (%) (Auto) 47.0 % (9.0-44.0) Eosinophils (%) (Auto) 4.3 % (0.0-4.0) 5.0 % (0.0-4.0) Sodium Level 146 MEQ/L (136-145) Chloride Level 114 MEQ/L 111 MEQ/L (98-107) (98-107) Calcium Level 7.6 MG/DL 7.9 MG/DL (8.5-10.1) (8.5-10.1) Total Bilirubin 0.1 MG/DL (0.2-1.0) Total Protein 5.4 GM/DL (6.4-8.2) Albumin 2.2 GM/DL (3.4-5.0) Blood Urea Nitrogen 5 MG/DL (7-18) Random Glucose 73 MG/DL (74-106) Imaging Last Impressions Pelvis Ultrasound 10/10/16 0544 Signed Impressions: Service Date/Time: Monday, October 10, 2016 06:41 - CONCLUSION: Small amount of residual fluid within the endometrial canal. No evidence of discrete myometrial or adnexal mass. Otherwise unremarkable exam. Paresh Lewis MD Abdomen/Pelvis CT 10/10/16 0000 Signed Impressions: Service Date/Time: Monday, October 10, 2016 13:56 - CONCLUSION: No acute intra-abdominal or pelvic process. Right kidney is small with areas of cortical contraction consistent with remote inflammatory process such as obstructive disease or pyelonephritis. Compensatory enlargement of the left kidney. Abelino Hilliard MD PE at Discharge O. CONSTITUTIONAL/GEN: normally nourished, in NAD. EYES: conjunctiva normal, PERRLA, EOMI. LUNGS: clear A-P, respiratory effort is normal. CARDIOVASCULAR: RR without murmur or gallop. No significant edema. GI/ABD: soft without masses, without organomegaly. The incision for the C- section as well closed without evidence of wound infection. Diffusely tender to palpation in lower abdominal area. : no CVA tenderness NEURO: No focal deficits. SKIN: color normal. There is a 1 cm opening in the skin on the posterior upper left thigh. No significant erythema is present at this time. There is still some induration of tissue surrounding the opening but no fluctuance that would suggest persistence of the abscess. MUSC: back is normal in appearance. Extremities are normal in appearance. PSYCH/MENTAL STATUS: Alert and oriented x 3. Hospital Course Patient was admitted for severe abdominal pain and pelvic pain. Recently had a . Also had an indurated and draining area of cellulitis on her left buttocks. Ultrasound and CT did not show any abscesses in the abdomen. Labs showed positive for gonorrhea and patient was diagnosed with PID. Treated with antibiotics for both cellulitis and PID and improved during this hospitalization. Patient was discharged with clindamycin antibiotic regimen and will follow-up with her PCP and [facility]. Pt Condition on Discharge: Good Discharge Disposition: Discharge Home Discharge Instructions DIET: Follow Instructions for: As Tolerated, No Restrictions Activities you can perform: Regular-No Restrictions Follow up Referrals: [facility] - 4 Weeks PCP Follow-up - 1 Week New Medications: Clindamycin (Cleocin) 150 Mg Cap 450 MG PO Q6HR #52 Arben Castro MD R2 Oct 13, 2016 09:19
[2017-01-10] MEDS ORDERED: MACR100C2 PO (11:04)
[2017-01-24] MEDS ORDERED: PROZ20CA11 PO (11:07)
== END 2016-10-12 21:10 | disposition home or self-care (01) | DRG 776 ==
LOC: NEPE 05:31 → NEDA 08:28 → NEDH 13:35 → N04A 16:08
PROVIDERS: ADMIT Family Medicine; ATTEND Family Medicine
DX: O85 Puerperal sepsis (principal); A54.24 Gonococcal female pelvic inflammatory disease; O98 Maternal infectious and parasitic diseases classifiable elsewhere but complicating pregnancy, childbirth and the puerperium; O86.0 Infection of obstetric surgical wound; L03.311 Cellulitis of abdominal wall; Z86.14 Personal history of Methicillin resistant Staphylococcus aureus infection; Z23 Encounter for immunization
CPT/HCPCS: 74177; 76830; 76856; 80048; 80053; 81001; 83605; 83690; 84703; 85025; 87040; 87086; 87210; 87491; 87591; 90471; 90472; 90686; 90732; 96361; 96365; 96374; 96375; G0008; G0009; J1580; J1885; J2270; J2405; J2543; J3370; J7030; J7050; Q2038; Q9963; Q9967

== ENCOUNTER 2016-12-23 02:19 | Inpatient (IN) | payer MEDICAID ==
[2016-12-23] VITALS (13 sets, daily range): BP systolic 82–138; BP diastolic 45–77; PULSE 76–114; RESP 16–20; TEMP 96.9–102.1; O2SAT 95–100
[~2016-12-23] VITALS: Ht 160 cm; Wt 42.0 kg
[~2016-12-23 02:19] MED LIST changes: +CLIN150 PO; -IBUP-232 PO; -OXYC1TAB63 PO; -PREN1CAP20; -PROM25TA5 PO; -SENN1TAB PO; -SIME80CH PO
[2016-12-23] MEDS ORDERED: ZOLO25TA PO (02:32)
[2016-12-23] MEDS ORDERED: VIST25CA PO (02:32)
[2016-12-23 03:15] LABS: AUTOMATED NEUTROPHIL # 21.9 TH/MM3 (1.8-7.7); BASOPHIL % 0.1 % (0.0-2.0); HEMATOCRIT 32.8 % (35.0-46.0); HEMO FLAGS DIFF FINAL; LYMPH % 8.6 % (9.0-44.0); LYMPHOCYTE # 2.2 TH/MM3 (1.0-4.8); MEAN CELL VOLUME 83.5 FL (80.0-100.0); MEAN CORPUSCULAR HEMOGLOBIN 28.1 PG (27.0-34.0); MEAN CORPUSCULAR HGB CONC 33.7 % (32.0-36.0); MONO % 5.7 % (0.0-8.0); NEUT % 85.6 % (16.0-70.0); PLATELET COUNT 272 TH/MM3 (150-450); RED BLOOD COUNT 3.93 MIL/MM3 (4.00-5.30); RED CELL DISTRIBUTION WIDTH 15.2 % (11.6-17.2); WHITE BLOOD COUNT 25.6 TH/MM3 (4.0-11.0)
[2016-12-23] MEDS ORDERED: MORPHINE SULFATE 4 MG/ML INJ IV PUSH ONE (03:15)
[2016-12-23] MEDS ORDERED: ACETAMINOPHEN 325 MG TAB PO ONE (03:15)
[2016-12-23] MEDS ORDERED: SODIUM CHLOR 0.9% 1000 ML INJ 1,000 ML IV ONE ×2 (03:15)
[2016-12-23 03:27] LABS: ALT (GPT) 27 U/L (10-53); ANION GAP 11 MEQ/L (5-15); AST (GOT) 21 U/L (15-37); BICARBONATE 21.3 MEQ/L (21.0-32.0); BLOOD UREA NITROGEN 11 MG/DL (7-18); CHLORIDE 102 MEQ/L (98-107); GLOMERULAR FILTRATION RATE 65 ML/MIN (>89); POTASSIUM 3.6 MEQ/L (3.5-5.1); SODIUM (NA) 134 MEQ/L (136-145)
[2016-12-23 03:29] LABS: BACTERIA, URINE RARE /hpf; BLOOD, URINE SMALL (NEG); COMMENT (UR) CULTURE INDICATED; CULTURE IF INDICATED CULTURE INDICATED; GLUCOSE,URINE NEG (NEG); KETONE, URINE 10 mg/dL (NEG); MUCUS URINE FEW /lpf (OCC); NITRITE,URINE NEG (NEG); PH, URINE 5.5 (5.0-8.5); SQUAMOUS EPITHELIAL CELL URINE 1 /hpf (0-5); URINE COLOR LIGHT-YELLOW (YELLW/STRAW)
[2016-12-23 03:30] LABS: ALKALINE PHOSPHATASE 100 U/L (45-117); TOTAL BILIRUBIN ADULT 0.4 MG/DL (0.2-1.0)
[2016-12-23] MEDS ORDERED: cefTRIAXone INJ 1,000 MG in SODIUM CHLORIDE 0.9% INJ 100 ML IV ONE (03:30)
--- NOTE | 2016-12-23 03:37 | PD ---
HPI Chief Complaint: Complaint Time Seen by Provider: 03:03 Travel History International Travel<30 days: No Contact w/Intl Traveler<30days: No Traveled to known affect area: No History of Present Illness HPI 26-year-old female here for evaluation of left flank pain, fevers, chills, generalized malaise. Symptoms of it going on for last 3 days and have been progressively worsening. Left flank pain is sharp, moderate, constant, worse with movement and palpation. She has felt nauseous. She reports history of several kidney infections in the past, and this feels very similar. She has had a slight nonproductive cough. She denies urinary symptoms such as dysuria, hematuria, or pyuria. She denies IVDU. [facility] Past Medical History Anxiety: Yes Depression: Yes Cancer: No Cardiovascular Problems: Yes Diminished Hearing: No Endocrine: No Genitourinary: Yes Immune Disorder: No Musculoskeletal: No Neurologic: No Reproductive: No Respiratory: No Immunizations Current: Yes Myocardial Infarction: Yes Tetanus Vaccination: < 5 Years Influenza Vaccination: Yes ?: Not LMP: UNKNOWN : 2 Para: 2 Past Surgical History Section: Yes Genitourinary Surgery: Yes (kidney surgery as a child) Gynecologic Surgery: Yes (c section sep 2016) Other Surgery: Yes Social History Alcohol Use: No Tobacco Use: Yes (four cigarettes per day) Substance Use: Yes (reports in august) Allergies-Medications (Allergen,Severity, Reaction): Coded Allergies: Latex (Verified Allergy, Severe, 12/23/16) *MDRO Multi-Drug Resistant Organism (Verified Adverse Reaction, Unknown, ) MRSA (abdomen) - 02/2016 Reported Meds & Prescriptions Reported Meds & Active Scripts Active Reported Vistaril (Hydroxyzine Pamoate) 25 Mg Cap 25 Mg PO HS PRN Zoloft (Sertraline HCl) 25 Mg Tab 75 Mg PO DAILY Review of Systems Except as stated in HPI: all other systems reviewed are Neg Physical Exam Narrative GENERAL: Well-developed, thin, shivering, overall sick appearing SKIN: Focused skin assessment warm/dry. No rash. No petechiae. HEAD: Atraumatic. Normocephalic. EYES: Pupils equal and round. No scleral icterus. No injection or drainage. ENT: No nasal bleeding or discharge. Mucous membranes pink and dry. NECK: Trachea midline. No JVD. No nuchal rigidity. CARDIOVASCULAR: Tachycardic, regular. RESPIRATORY: No accessory muscle use. Clear to auscultation. Breath sounds equal bilaterally. GASTROINTESTINAL: Abdomen soft, non-tender, nondistended. MUSCULOSKELETAL: No obvious deformities. No clubbing. No cyanosis. No edema. No midline vertebral step-off or tenderness. Moderate left CVA tenderness. No right CVA tenderness. NEUROLOGICAL: Awake and alert. No obvious cranial nerve deficits. Motor grossly within normal limits. Normal speech. PSYCHIATRIC: Appropriate mood and affect; insight and judgment normal. Data Data Last Documented VS Vital Signs Date Time Temp Pulse Resp B/P Pulse Ox O2 Delivery O2 Flow Rate FiO2 12/23/16 02:33 105 16 138/77 99 Room Air Orders Complete Blood Count With Diff (12/23/16 02:49) Comprehensive Metabolic Panel (12/23/16 02:49) Lactic Acid (12/23/16 02:49) Chest, Single Ap (12/23/16 ) Urinalysis - C+S If Indicated (12/23/16 02:49) Ed Urine Pregnancytest Poc (12/23/16 02:49) Iv Access Insert/Monitor (12/23/16 02:49) Blood Culture (12/23/16 03:06) Ct Abd/Pel W/O Iv Contrast (12/23/16 03:06) Morphine Inj (Morphine Inj) (12/23/16 03:15) Sodium Chlor 0.9% 1000 Ml Inj (Ns 1000 M (12/23/16 03:15) Sodium Chlor 0.9% 1000 Ml Inj (Ns 1000 M (12/23/16 03:15) Acetaminophen (Tylenol) (12/23/16 03:15) Ceftriaxone Inj (Rocephin Inj) (12/23/16 03:30) Urine Culture (12/23/16 03:00) Labs Laboratory Tests Test 12/23/16 12/23/16 02:45 03:00 White Blood Count 25.6 TH/MM3 Red Blood Count 3.93 MIL/MM3 Hemoglobin 11.0 GM/DL Hematocrit 32.8 % Mean Corpuscular Volume 83.5 FL Mean Corpuscular Hemoglobin 28.1 PG Mean Corpuscular Hemoglobin 33.7 % Concent Red Cell Distribution Width 15.2 % Platelet Count 272 TH/MM3 Mean Platelet Volume 8.9 FL Neutrophils (%) (Auto) 85.6 % Lymphocytes (%) (Auto) 8.6 % Monocytes (%) (Auto) 5.7 % Eosinophils (%) (Auto) 0.0 % Basophils (%) (Auto) 0.1 % Neutrophils # (Auto) 21.9 TH/MM3 Lymphocytes # (Auto) 2.2 TH/MM3 Monocytes # (Auto) 1.4 TH/MM3 Eosinophils # (Auto) 0.0 TH/MM3 Basophils # (Auto) 0.0 TH/MM3 CBC Comment DIFF FINAL Differential Comment Sodium Level 134 MEQ/L Potassium Level 3.6 MEQ/L Chloride Level 102 MEQ/L Carbon Dioxide Level 21.3 MEQ/L Anion Gap 11 MEQ/L Blood Urea Nitrogen 11 MG/DL Creatinine 1.01 MG/DL Estimat Glomerular Filtration 65 ML/MIN Rate Random Glucose 109 MG/DL Lactic Acid Level 0.9 mmol/L Calcium Level 8.9 MG/DL Total Bilirubin 0.4 MG/DL Aspartate Amino Transf 21 U/L (AST/SGOT) Alanine Aminotransferase 27 U/L (ALT/SGPT) Alkaline Phosphatase 100 U/L Total Protein 7.3 GM/DL Albumin 3.3 GM/DL Urine Color LIGHT-YELLOW Urine Turbidity CLEAR Urine pH 5.5 Urine Specific [place] 1.008 Urine Protein 30 mg/dL Urine Glucose (UA) NEG mg/dL Urine Ketones 10 mg/dL Urine Occult Blood SMALL Urine Nitrite NEG Urine Bilirubin NEG Urine Urobilinogen LESS THAN 2.0 MG/DL Urine Leukocyte Esterase MOD Urine RBC LESS THAN 1 /hpf Urine WBC 11 /hpf Urine Squamous Epithelial 1 /hpf Cells Urine Bacteria RARE /hpf Urine Mucus FEW /lpf Microscopic Urinalysis Comment CULTURE INDICATED MDM Medical Decision Making Medical Screen Exam Complete: Yes Emergency Medical Condition: Yes Medical Record Reviewed: Yes Differential Diagnosis Sepsis, UTI, pyelonephritis, nephrolithiasis, ureterolithiasis, colitis, pneumonia, viral illness, gastritis, peptic ulcer disease Narrative Course Initial vital signs show heart rate 114, blood pressure 114/68, pulse ox 98% on room air, oral temp of 102.1F. CBC shows WBC 25.6, hemoglobin 11, hematocrit 32.8, platelets 272, neutrophils 85.6%. CMP is unremarkable. Lactic acid is 0.9. UA shows clear urine, 30 protein, small occult blood, moderate leukocyte esterase, 11 wbc's, rare bacteria. CT abdomen pelvis: CONCLUSION: 1. No evidence of calcified renal stones or hydronephrosis. 2. No significant change compared to the prior examination. Patient was given 2 L of normal saline IV and was given Rocephin empirically for sepsis with likely urinary source. After 2 L of normal saline IV, the patient's heart rate improved to 92. Repeat blood pressure is 104/68. Patient is sleeping comfortably. She has no skin infections. She again denies IVDU. There is no nuchal rigidity on exam. Likely source for her infection is her UTI /pyelonephritis. She will be admitted for further treatment and evaluation of sepsis, UTI. Case discussed with hospitalist Dr. Gardner who will admit the patient to her service. Diagnosis Primary Impression: Sepsis Qualified Code: A41.9 - Sepsis, due to unspecified organism Additional Impression: UTI (urinary tract infection) Qualified Code: N10 - Acute pyelonephritis Admitting Information Admitting Physician Requests: Admit Dimitris Holt MD Dec 23, 2016 03:37
--- NOTE | 2016-12-23 03:41 | RADRPT ---
EXAM DATE/TIME: 12/23/2016 03:16 [facility] COMPARISON: No previous studies available for comparison. INDICATIONS : Shortness of breath. MEDICAL HISTORY : Myocardial infarction. SURGICAL HISTORY : None. ENCOUNTER: Initial ACUITY: 1 week PAIN SCORE: 0/10 LOCATION: chest FINDINGS: A single view of the chest demonstrates the lungs to be symmetrically aerated without evidence of mas s, infiltrate or effusion. The cardiomediastinal contours are unremarkable. Osseous structures are intact. CONCLUSION: No acute intrathoracic disease. Srinivasan Lopez MD on December 23, 2016 at 3:39 Board Certified Radiologist. This report was verified electronically.
--- NOTE | 2016-12-23 04:35 | RADRPT ---
EXAM DATE/TIME: 12/23/2016 04:02 [facility] COMPARISON: CT ABDOMEN & PELVIS W CONTRAST, October 10, 2016, 13:56. INDICATIONS : Left flank pain for three days ORAL CONTRAST: No oral contrast ingested. RADIATION DOSE: 13.28 CTDIvol (mGy) MEDICAL HISTORY : Cardiovascular disease. SURGICAL HISTORY : section. left kidney surgery ENCOUNTER: Initial ACUITY: 3 days PAIN SCALE: 10/10 LOCATION: Left flank TECHNIQUE: Volumetric scanning of the abdomen and pelvis was performed. Using automated exposure control and ad justment of the mA and/or kV according to patient size, radiation dose was kept as low as reasonably achievable to obtain optimal diagnostic quality images. The lack of IV contrast limits the diagnosis for certain organ pathology. FINDINGS: LOWER LUNGS: The visualized lower lungs are clear. LIVER: Homogeneous density without lesion. There is no dilation of the biliary tree. No calcified gallston es. SPLEEN: Normal size without lesion. PANCREAS: Within normal limits. KIDNEYS: The right kidney is smaller than the left. There is no evidence of hydronephrosis. No calcified renal stones. No significant change compared to the prior exam. ADRENAL GLANDS: Within normal limits. VASCULAR: There is no aortic aneurysm. BOWEL/MESENTERY: The stomach, small bowel, and colon demonstrate no acute abnormality. There is no free intraperitone al air or fluid. No inflammatory changes. ABDOMINAL WALL: Within normal limits. RETROPERITONEUM: There is no lymphadenopathy. BLADDER: No wall thickening or mass. REPRODUCTIVE: Within normal limits for patient's age. No free fluid in the pelvis. No significant change compared t o the prior exam.. INGUINAL: There is no lymphadenopathy or hernia. MUSCULOSKELETAL: Within normal limits for patient age. CONCLUSION: 1. No evidence of calcified renal stones or hydronephrosis. 2. No significant change compared to the prior examination. Srinivasan Lopez MD on December 23, 2016 at 4:29 Board Certified Radiologist. This report was verified electronically.
[2016-12-23] MEDS ORDERED: SODIUM CHLORIDE 0.9% FLUSH 10 ML FLUSH IV FLUSH PRN (06:00)
[2016-12-23] MEDS ORDERED: NALOXONE HCL 0.4 MG/ML AMP IV PRN (06:00)
--- NOTE | 2016-12-23 08:29 | HHI.HP ---
HPI Service [facility] Primary Care Physician No Primary Care Physician Admission Diagnosis sepsis, UTI, pyelonephritis Diagnoses: (1) Sepsis Diagnosis: Principal (2) Acute peylopnephritis Diagnosis: Principal Chief Complaint: Fever, chills, left flank pain Travel History International Travel<30 Days: No Contact w/Intl Traveler <30 Da: No Traveled to Known Affected Are: No Sepsis Criteria SIRS Criteria (2 or more): Temp > 100.9 or < 96.8, Heart rate over 90, WBC > 47266, < 4000 or > 10% bands Sepsis Criteria (SIRS+source): Infect source susp/known Severe Sepsis (+one): Hypotension Criteria Outcome: Meets severe sepsis criteria History of Present Illness Patient is a 26-year-old female 2 para 2 status post delivery about 3 months ago through section in 09/22/16 at around 36 months of . 2 weeks ago started her cycles postdelivery. Patient states she is now sexually active single partner however partner is not using any condoms. Post she was admitted here on October 10 because of lower abdominal pain. ER notes said there was some infection in the post operative set section site. On exam then also showed cellulitis and signs of induration the left posterior thigh area. .. Patient was started on gentamicin and was discharged on clindamycin. Which she states she completed. About 2 weeks ago came to the ER and was noted to have a gonococcal PID. She was given Rocephin and switch to by mouth clindamycin which states she completed. She came to the emergency room today complaining of left flank pain which started about 3 days ago associated with fever and on and off chills. Patient takes ibuprofen when necessary for fever and pain. Patient specifically denies any urinary symptoms - burning,. dysuria.. Complains of persistent left flank pain worsened with movement. She actually states that her urine appears clear and light colored. Denies any vaginal discharge, tiching or bleeding. Her bowel movement has been regular denies any diarrhea. Fever and chills and left flank pain prompted consult to ER on evaluation with a white count of 25,000 and temperature of 102. She does complain of nausea and dry cough. Patient admitted for further evaluation and management. Review of Systems Constitutional: COMPLAINS OF: Fever Endocrine: DENIES: Abnorml menstrual pattern, Heat/cold intolerance, Polydipsia , Polyuria, Polyphagia Eyes: DENIES: Blurred vision, Diplopia, Eye inflammation, Eye pain, Vision loss , Photosensitivity, Double Vision Ears, nose, mouth, throat: DENIES: Tinnitus, Hearing loss, Vertigo, Nasal discharge, Oral lesions, Throat pain, Hoarseness, Ear Pain, Running Nose, Epistaxis, Sinus Pain, Toothache, Odynophagia Respiratory: COMPLAINS OF: Cough Cardiovascular: DENIES: Chest pain, Palpitations, Syncope, Dyspnea on Exertion , PND, Lower Extremity Edema, Orthopnea, Claudication Gastrointestinal: COMPLAINS OF: Nausea Genitourinary: DENIES: Abnormal vaginal bleeding, Dysmenorrhea, Dyspareunia, Sexual dysfunction, Urinary frequency, Urinary incontinence, Urgency, Hematuria , Dysuria, Nocturia, Vaginal discharge Musculoskeletal: DENIES: Joint pain, Muscle aches, Stiffness, Joint Swelling, Back pain, Neck pain Integumentary: DENIES: Abnormal pigmentation, Pruritus, Rash, Nail changes, Breast masses, Breast skin changes, Nipple discharge Hematologic/lymphatic: DENIES: Bruising, Lymphadenopathy Immunologic/allergic: DENIES: Eczema, Urticaria Neurologic: COMPLAINS OF: Headache Psychiatric: DENIES: Anxiety, Confusion, Mood changes, Depression, Hallucinations, Agitation, Suicidal Ideation, Homicidal Ideation, Delusions Past Family Social History Past Medical History Hypertension during , urinary tract infection/acute pyelonephritis involving the right side. 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 Social History Smokes 6-7 sticks a day, denies any alcohol or substance abuse Physical Exam Vital Signs Vital Signs Date Time Temp Pulse Resp B/P Pulse Ox O2 Delivery O2 Flow Rate FiO2 12/23/16 07:52 91/58 12/23/16 07:10 98.5 97 18 88/54 97 Room Air 12/23/16 07:10 72 18 12/23/16 06:00 98.6 83 16 86/59 97 Room Air 12/23/16 05:00 90 16 82/45 96 Room Air 12/23/16 02:33 105 16 138/77 99 Room Air 12/23/16 02:20 102.1 114 20 114/68 98 Room Air Physical Exam GENERAL: Weak not in acute distress SKIN: No rashes, ecchymoses or lesions. Cool and dry. HEAD: Atraumatic. Normocephalic. No temporal or scalp tenderness. EYES: Pupils equal round and reactive. Extraocular motions intact. No scleral icterus. No injection or drainage. ENT: Nose without bleeding, purulent drainage or septal hematoma. Throat without erythema, tonsillar hypertrophy or exudate. Uvula midline. Airway patent. Dry oral mucosa NECK: Trachea midline. No JVD or lymphadenopathy. Supple, nontender, no meningeal signs. No nuchal rigidity CARDIOVASCULAR: Regular rate and rhythm without murmurs, gallops, or rubs. RESPIRATORY: Clear to auscultation. Breath sounds equal bilaterally. No wheezes , rales, or rhonchi. GASTROINTESTINAL: Abdomen soft, non-tender, nondistended. No hepato-splenomegaly , positive CVA tenderness Lower abdominal area post section incision site dry with no signs of erythema or infection MUSCULOSKELETAL: Extremities without clubbing, cyanosis, or edema. No joint tenderness, effusion, or edema noted. No calf tenderness. Negative Homans sign bilaterally. Thigh left specifically left posterior aspect with no signs of injury patient well-healed scar from previous wound NEUROLOGICAL: Awake and alert. Cranial nerves II through XII intact. Motor and sensory grossly within normal limits. Five out of 5 muscle strength in all muscle groups. Normal speech. Laboratory Laboratory Tests Test 12/23/16 12/23/16 02:45 03:00 White Blood Count 25.6 Red Blood Count 3.93 Hemoglobin 11.0 Hematocrit 32.8 Mean Corpuscular Volume 83.5 Mean Corpuscular Hemoglobin 28.1 Mean Corpuscular Hemoglobin 33.7 Concent Red Cell Distribution Width 15.2 Platelet Count 272 Mean Platelet Volume 8.9 Neutrophils (%) (Auto) 85.6 Lymphocytes (%) (Auto) 8.6 Monocytes (%) (Auto) 5.7 Eosinophils (%) (Auto) 0.0 Basophils (%) (Auto) 0.1 Neutrophils # (Auto) 21.9 Lymphocytes # (Auto) 2.2 Monocytes # (Auto) 1.4 Eosinophils # (Auto) 0.0 Basophils # (Auto) 0.0 CBC Comment DIFF FINAL Differential Comment Sodium Level 134 Potassium Level 3.6 Chloride Level 102 Carbon Dioxide Level 21.3 Anion Gap 11 Blood Urea Nitrogen 11 Creatinine 1.01 Estimat Glomerular Filtration 65 Rate Random Glucose 109 Lactic Acid Level 0.9 Calcium Level 8.9 Total Bilirubin 0.4 Aspartate Amino Transf 21 (AST/SGOT) Alanine Aminotransferase 27 (ALT/SGPT) Alkaline Phosphatase 100 Total Protein 7.3 Albumin 3.3 Urine Color LIGHT-YELLOW Urine Turbidity CLEAR Urine pH 5.5 Urine Specific [place] 1.008 Urine Protein 30 Urine Glucose (UA) NEG Urine Ketones 10 Urine Occult Blood SMALL Urine Nitrite NEG Urine Bilirubin NEG Urine Urobilinogen LESS THAN 2.0 Urine Leukocyte Esterase MOD Urine RBC LESS THAN 1 Urine WBC 11 Urine Squamous Epithelial 1 Cells Urine Bacteria RARE Urine Mucus FEW Microscopic Urinalysis Comment CULTURE INDICATED Date/Time Procedure Status Source Growth 12/23/16 03:00 Urine Culture Received Urine Clean Catch Pending 12/23/16 02:50 Aerobic Blood Culture Received Blood Peripheral Pending 12/23/16 02:50 Anaerobic Blood Culture Received Blood Peripheral Pending Result Diagram: 12/23/16 0245 12/23/16 0245 Imaging Last Impressions Abdomen/Pelvis CT 12/23/16 0306 Signed Impressions: Service Date/Time: Friday, December 23, 2016 04:02 - CONCLUSION: 1. No evidence of calcified renal stones or hydronephrosis. 2. No significant change compared to the prior examination. Srinivasan Lopez MD Chest X-Ray 12/23/16 0000 Signed Impressions: Service Date/Time: Friday, December 23, 2016 03:16 - CONCLUSION: No acute intrathoracic disease. Srinivasan Lopez MD Septic Shock Reassessment Heart: Regular rate and rhythm Lungs: Clear Skin: Warm Peripheral Pulses: Bounding Right Radial Bounding Left Radial Bounding Right Popliteal Bounding Left Popliteal Bounding Right Dorsalis Pedis Bounding Left Dorsalis Pedis Bounding Right Posterior Tibial Bounding Left Posterior Tibial Capillary Refill: Brisk Assessment and Plan Assessment and Plan 26-year-old female with history of recurrent urinary tract infection/acute pyelonephritis presenting with Sepsis secondary to acute pyelonephritis Leukocytosis Questionable underlying Obstructive component - ureteral stones that she passed - previous review of CT shows possible hydronephrosis. Repeat CT shows no obstructive uropathy. ? possible stone that passed Patient started on IV antibiotics Rocephin and will continue this for now Follow repeat cultures urine and blood. Follow CBC We'll get infectious disease service involved early for recommendation. Patient currently denies any urinary symptoms or any vaginal discharge Start maintenance IV fluid Previous gonorrhea infection- S/P treatment. will discuss HIV testing with her Cough dry chest x-ray negative will write for incentive spirometry.. CXR negative Discussed with patient. Discussed Condition With Patient Physician Certification 2 Midnight Certification Type: Admission for Inpatient Services Order for Inpatient Services The services are ordered in accordance with Medicare regulations or non- Medicare payer requirements, as applicable. In the case of services not specified as inpatient-only, they are appropriately provided as inpatient services in accordance with the 2-midnight benchmark. Estimated LOS (days): 3 days is the estimated time the patient will need to remain in the hospital, assuming treatment plan goals are met and no additional complications. Post-Hospital Plan: Not yet determined Problem Qualifiers (1) Sepsis: Qualified Code: A41.9 - Sepsis, due to unspecified organism Karey Rebollar MD Dec 23, 2016 08:29
[2016-12-23] MEDS: SODIUM CHLORIDE 0.9% FLUSH 10 ML FLUSH IV FLUSH SCH ×2 (09:00→20:25)
[2016-12-23] MEDS: PANTOPRAZOLE SOD 40 MG DELAYED RELEASE TAB PO SCH ×2 (09:00→10:36)
[2016-12-23] MEDS ORDERED: ONDANSETRON HCL 4 MG/2 ML VIAL IV PUSH PRN (09:00)
[2016-12-23 09:53] LABS: AMPHETAMINE, URINE NEG (NEG); BARBITURATES, URINE NEG (NEG); COCAINE, URINE NEG (NEG)
[2016-12-23] MEDS: IBUPROFEN 600 MG TAB PO PRN (10:36)
[2016-12-23] MEDS: SODIUM CHLOR 0.9% 1000 ML INJ 1,000 ML IV SCH ×3 (10:37→20:25)
--- NOTE | 2016-12-23 14:47 | PD.CONS ---
History of Present Illness Service Infectious Disease Consult Requested By Dr Arian Rebollar Reason for Consult Evaluate patient with sepsis Primary Care Physician No Primary Care Physician Diagnoses: History of Present Illness Patient seen and examined. Records reviewed. Patient is a 26-year-old female, presented to the hospital complaining 2 day history of pain in her left flank, as well as fever and chills. She also was having vomiting. She denies any dysuria or any hematuria. On presentation she had a fever of 102, and her WBC was 25,000. Urinalysis showed some pyuria. CT of the abdomen and pelvis showed some right kidney which could be seen in previous inflammatory disease, and compensatory enlargement of the left kidney. Patient's temperature are better. She had 1 vomiting today, but has tolerated her lunch. She denies any significant respiratory complaint. Denies any exposure to any sick child. She has had previous history of UTI. Infectious disease consultation has been requested to evaluate the patient. Patient had a section in September, and this was complicated by infection on her incision. She was hospitalized the end of September, and was given antibiotic with good results. Her incision has healed without any further problem. Review of Systems Constitutional: COMPLAINS OF: Fever, Chills Eyes: DENIES: Eye pain Ears, nose, mouth, throat: DENIES: Nasal discharge, Oral lesions, Throat pain, Running Nose, Sinus Pain Respiratory: DENIES: Cough, Sputum production, Shortness of breath Cardiovascular: DENIES: Chest pain, Palpitations, Syncope Gastrointestinal: COMPLAINS OF: Abdominal pain, Nausea, Vomiting, DENIES: Diarrhea, Difficulty Swallowing Musculoskeletal: COMPLAINS OF: Back pain, DENIES: Joint pain, Muscle aches, Joint Swelling, Neck pain Integumentary: DENIES: Rash Neurologic: DENIES: Headache Psychiatric: DENIES: Hallucinations Past Family Social History Allergies: Coded Allergies: Latex (Verified Allergy, Severe, 01/10/17) ONLY TO GLOVES AND BANDAIDS. 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 LTCS Active Ordered Medications Tylenol Rocephin Motrin Zofran Protonix Social History Smokes less than 1/2 ppd No ETOH No drugs Physical Exam Vital Signs Vital Signs Date Time Temp Pulse Resp B/P Pulse Ox O2 Delivery O2 Flow Rate FiO2 12/23/16 11:47 98.9 80 18 86/50 95 12/23/16 08:36 97.7 88 18 124/66 100 12/23/16 07:52 91/58 12/23/16 07:10 98.5 97 18 88/54 97 Room Air 12/23/16 07:10 72 18 12/23/16 06:00 98.6 83 16 86/59 97 Room Air 12/23/16 05:00 90 16 82/45 96 Room Air 12/23/16 02:33 105 16 138/77 99 Room Air 12/23/16 02:20 102.1 114 20 114/68 98 Room Air Physical Exam GENERAL: This is a thin, well-developed female, awake and alert, not in any respiratory distress. SKIN: Warm and dry. No generalized rash or ecchymosis. HEAD: Atraumatic. Normocephalic. No temporal or scalp tenderness. EYES: Willey conjunctivae. Pupils equal round and reactive. Extraocular motions intact. No scleral icterus. No injection or drainage. ENT: Nose without bleeding, or purulent drainage. Moist oral mucosa. No oral thrush. Throat without erythema, or exudate. Uvula midline. Airway patent. NECK: Trachea midline. No JVD or lymphadenopathy. Supple, nontender, no meningeal signs. CARDIOVASCULAR: Regular rate and rhythm without murmurs, gallops, or rubs. RESPIRATORY: Clear to auscultation. Breath sounds equal bilaterally. No wheezes , rales, or rhonchi. GASTROINTESTINAL: Abdomen soft, flat, not distended, with tenderness especially on the left side. No guarding or rebound. No hepato-splenomegaly, or palpable masses. Bowel sounds are present and hypoactive. She has a well-healed incision from her previous section. MUSCULOSKELETAL: Extremities without clubbing, cyanosis, or edema. No joint tenderness, or effusion. No calf tenderness. NEUROLOGICAL: Awake and alert. Cranial nerves are grossly intact. Motor strength are symmetrical. Normal speech. PSYCH: Calm and cooperative LINE: PIV with no evidence of infection Laboratory Laboratory Tests Test 12/23/16 12/23/16 02:45 03:00 White Blood Count 25.6 Red Blood Count 3.93 Hemoglobin 11.0 Hematocrit 32.8 Mean Corpuscular Volume 83.5 Mean Corpuscular Hemoglobin 28.1 Mean Corpuscular Hemoglobin 33.7 Concent Red Cell Distribution Width 15.2 Platelet Count 272 Mean Platelet Volume 8.9 Neutrophils (%) (Auto) 85.6 Lymphocytes (%) (Auto) 8.6 Monocytes (%) (Auto) 5.7 Eosinophils (%) (Auto) 0.0 Basophils (%) (Auto) 0.1 Neutrophils # (Auto) 21.9 Lymphocytes # (Auto) 2.2 Monocytes # (Auto) 1.4 Eosinophils # (Auto) 0.0 Basophils # (Auto) 0.0 CBC Comment DIFF FINAL Differential Comment Sodium Level 134 Potassium Level 3.6 Chloride Level 102 Carbon Dioxide Level 21.3 Anion Gap 11 Blood Urea Nitrogen 11 Creatinine 1.01 Estimat Glomerular Filtration 65 Rate Random Glucose 109 Lactic Acid Level 0.9 Calcium Level 8.9 Total Bilirubin 0.4 Aspartate Amino Transf 21 (AST/SGOT) Alanine Aminotransferase 27 (ALT/SGPT) Alkaline Phosphatase 100 Total Protein 7.3 Albumin 3.3 Urine Color LIGHT-YELLOW Urine Turbidity CLEAR Urine pH 5.5 Urine Specific [place] 1.008 Urine Protein 30 Urine Glucose (UA) NEG Urine Ketones 10 Urine Occult Blood SMALL Urine Nitrite NEG Urine Bilirubin NEG Urine Urobilinogen LESS THAN 2.0 Urine Leukocyte Esterase MOD Urine RBC LESS THAN 1 Urine WBC 11 Urine Squamous Epithelial 1 Cells Urine Bacteria RARE Urine Mucus FEW Microscopic Urinalysis Comment CULTURE INDICATED Urine Opiates Screen NEG Urine Barbiturates Screen NEG Urine Amphetamines Screen NEG Urine Benzodiazepines Screen NEG Urine Cocaine Screen NEG Urine Cannabinoids Screen NEG Date/Time Procedure Status Source Growth 12/23/16 03:00 Urine Culture Received Urine Clean Catch Pending 12/23/16 02:50 Aerobic Blood Culture Received Blood Peripheral Pending 12/23/16 02:50 Anaerobic Blood Culture Received Blood Peripheral Pending Result Diagram: 12/23/16 0245 12/23/16 0245 Imaging RADIOLOGY STUDIES/FILMS REVIEWED Abdomen/Pelvis CT 12/23/16 0306 Signed Impressions: Service Date/Time: Friday, December 23, 2016 04:02 - CONCLUSION: 1. No evidence of calcified renal stones or hydronephrosis. 2. No significant change compared to the prior examination. Srinivasan Lopez MD Chest X-Ray 12/23/16 0000 Signed Impressions: Service Date/Time: Friday, December 23, 2016 03:16 - CONCLUSION: No acute intrathoracic disease. Srinivasan Lopez MD Assessment and Plan Assessment and Plan IMPRESSION Sepsis due to source - CT no obstruction, no stone Recent LTCS RECOMMENDATION Continue Rocephin Follow C/S and adjust Abx Follow CBC Monitor progress Once C/S finalized, if no fever and no further vomiting, can switch to oral Abx based on culture results and give total 14 days Rx Thank you for this consultation Dr Morales covering this weekend Discussed Condition With Explained plan to patient Danyell Dubon MD Dec 23, 2016 14:47
[2016-12-23] MEDS: cefTRIAXone INJ 2,000 MG in SODIUM CHLORIDE 0.9% INJ 100 ML IV SCH (15:50)
[2016-12-23] MEDS: ACETAMINOPHEN 325 MG TAB PO PRN ×2 (17:18→22:01)
[2016-12-24] VITALS (9 sets, daily range): BP systolic 96–118; BP diastolic 56–75; PULSE 55–89; RESP 16–20; TEMP 96–101.4; O2SAT 97–100
[2016-12-24] MEDS: IBUPROFEN 600 MG TAB PO PRN ×3 (00:58→22:14)
[2016-12-24] MEDS: cefTRIAXone INJ 2,000 MG in SODIUM CHLORIDE 0.9% INJ 100 ML IV SCH ×2 (03:37→15:35)
[2016-12-24 06:01] LABS: AUTOMATED NEUTROPHIL # 8.6 TH/MM3 (1.8-7.7); BASOPHIL % 0.1 % (0.0-2.0); EOSINOPHIL % 0.1 % (0.0-4.0); HEMATOCRIT 28.2 % (35.0-46.0); HEMO FLAGS DIFF FINAL; LYMPH % 19.1 % (9.0-44.0); LYMPHOCYTE # 2.3 TH/MM3 (1.0-4.8); MEAN CELL VOLUME 86.4 FL (80.0-100.0); MEAN CORPUSCULAR HEMOGLOBIN 27.3 PG (27.0-34.0); MEAN CORPUSCULAR HGB CONC 31.6 % (32.0-36.0); MONO % 8.3 % (0.0-8.0); NEUT % 72.4 % (16.0-70.0); PLATELET COUNT 165 TH/MM3 (150-450); RED BLOOD COUNT 3.27 MIL/MM3 (4.00-5.30); RED CELL DISTRIBUTION WIDTH 15.4 % (11.6-17.2); WHITE BLOOD COUNT 11.8 TH/MM3 (4.0-11.0)
[2016-12-24] MEDS: SODIUM CHLOR 0.9% 1000 ML INJ 1,000 ML IV SCH ×2 (07:40→15:36)
[2016-12-24] MEDS: PANTOPRAZOLE SOD 40 MG DELAYED RELEASE TAB PO SCH (07:45)
[2016-12-24] MEDS: SODIUM CHLORIDE 0.9% FLUSH 10 ML FLUSH IV FLUSH SCH ×2 (07:45→20:59)
--- NOTE | 2016-12-24 18:24 | HHI.PR ---
Subjective Remarks T max 101.5 early this am complaining about her diet no nausea or vomiting Objective Vitals Vital Signs Date Time Temp Pulse Resp B/P Pulse Ox O2 Delivery O2 Flow Rate FiO2 12/24/16 16:00 99.5 81 17 112/63 100 12/24/16 12:00 98.9 68 16 103/60 99 12/24/16 08:00 96.6 61 17 96/59 100 12/24/16 04:00 96.0 55 20 102/63 100 12/24/16 03:00 97.9 12/24/16 00:00 101.4 89 20 110/56 97 12/23/16 22:00 77 12/23/16 22:00 77 12/23/16 20:00 100.4 82 20 107/68 100 I/O 12/23/16 12/23/16 12/23/16 12/24/16 12/24/16 12/24/16 07:00 15:00 23:00 07:00 15:00 23:00 Intake Total 984 ml 1057 ml 1445 ml Balance 984 ml 1057 ml 1445 ml Intake Oral 480 ml 0 ml 500 ml IV Total 504 ml 1057 ml 945 ml # Voids 2 1 4 # Bowel Movements 0 Result Diagram: 12/24/16 0437 12/23/16 0245 Imaging Last Impressions Abdomen/Pelvis CT 12/23/16 0306 Signed Impressions: Service Date/Time: Friday, December 23, 2016 04:02 - CONCLUSION: 1. No evidence of calcified renal stones or hydronephrosis. 2. No significant change compared to the prior examination. Srinivasan Lopez MD Chest X-Ray 12/23/16 0000 Signed Impressions: Service Date/Time: Friday, December 23, 2016 03:16 - CONCLUSION: No acute intrathoracic disease. Srinivasan Lopez MD Objective Remarks a x o x 3, NAD lungs clear regular rhythm + left CVA tenderness extremities no edema A/P Problem List: (1) Sepsis ICD Code: A41.9 Status: Resolved (2) Acute peylopnephritis Status: Acute Assessment and Plan 26-year-old female with history of recurrent urinary tract infection/acute pyelonephritis presenting with Sepsis secondary to acute pyelonephritis Leukocytosis due to above - down to 15 from 25 Questionable underlying Obstructive component - ureteral stones that she passed - previous review of CT shows possible hydronephrosis. Repeat CT shows no obstructive uropathy. ? possible stone that passed on Rocephin and will continue this for now-awaiting final C and S Acute Anemia- no signs of active bleeding. patient got aggressive hydration. recheck CBC in am Previous gonorrhea infection- S/P treatment. will discuss HIV testing with her- "not now" Cough dry - improved chest Incentive spirometry.. CXR negative Problem Qualifiers (1) Sepsis: Qualified Code: A41.9 - Sepsis, due to unspecified organism Karey Rebollar MD Dec 24, 2016 18:24
[2016-12-25] VITALS: BP 102/60; PULSE 74; RESP 20; TEMP 98.9; O2SAT 95
[2016-12-25 04:00] VITALS: BP 113/76; PULSE 61; RESP 20; TEMP 97.9; O2SAT 100
[2016-12-25] MEDS: cefTRIAXone INJ 2,000 MG in SODIUM CHLORIDE 0.9% INJ 100 ML IV SCH (04:27)
[2016-12-25] MEDS: SODIUM CHLOR 0.9% 1000 ML INJ 1,000 ML IV SCH (04:27)
[2016-12-25] MEDS: PANTOPRAZOLE SOD 40 MG DELAYED RELEASE TAB PO SCH (07:25)
[2016-12-25] MEDS: SODIUM CHLORIDE 0.9% FLUSH 10 ML FLUSH IV FLUSH SCH (07:29)
[2016-12-25 08:00] VITALS: BP 120/83; PULSE 68; RESP 16; TEMP 98.3; O2SAT 100
--- NOTE | 2016-12-25 08:47 | HHI.PR ---
Subjective Remarks T down no burning or pain during urination patient tolerating po well, no nausea or vomiting states she started her cycles- heavy 2 days ago Objective Vitals Vital Signs Date Time Temp Pulse Resp B/P Pulse Ox O2 Delivery O2 Flow Rate FiO2 12/25/16 04:00 97.9 61 20 113/76 100 12/25/16 00:00 98.9 74 20 102/60 95 12/24/16 22:14 99.1 88 20 118/74 100 12/24/16 20:00 99.2 73 20 116/75 100 12/24/16 19:30 68 12/24/16 16:00 99.5 81 17 112/63 100 12/24/16 12:00 98.9 68 16 103/60 99 I/O 12/24/16 12/24/16 12/24/16 12/25/16 12/25/16 12/25/16 07:00 15:00 23:00 07:00 15:00 23:00 Intake Total 1057 ml 1445 ml 1918 ml 815 ml Balance 1057 ml 1445 ml 1918 ml 815 ml Intake Oral 0 ml 500 ml 1200 ml 240 ml IV Total 1057 ml 945 ml 718 ml 575 ml # Voids 1 4 4 2 # Bowel Movements 0 Result Diagram: 12/24/16 0437 12/23/16 0245 Imaging Last Impressions Abdomen/Pelvis CT 12/23/16 0306 Signed Impressions: Service Date/Time: Friday, December 23, 2016 04:02 - CONCLUSION: 1. No evidence of calcified renal stones or hydronephrosis. 2. No significant change compared to the prior examination. Srinivasan Lopez MD Chest X-Ray 12/23/16 0000 Signed Impressions: Service Date/Time: Friday, December 23, 2016 03:16 - CONCLUSION: No acute intrathoracic disease. Srinivasan Lopez MD Objective Remarks a x o x 3, NAD lungs clear regular rhythm abdomen soft, good bowel sounds no flank tenderness on exam extremities no edema A/P Problem List: (1) Sepsis ICD Code: A41.9 Status: Resolved (2) Acute peylopnephritis Status: Acute Assessment and Plan 26-year-old female with history of recurrent urinary tract infection/acute pyelonephritis presenting with Sepsis secondary to UTI/acute pyelonephritis- UA- E. coli. blood culture negative so far Leukocytosis - down to [address] of abdomen/pelvis- no obstruction on Rocephin - change to Ciprolfloxacin 500 mg po bid x 12 days on DC Acute Anemia- - patient now states started cycles- usually heavy- I informed her - needs gyne ff up- states she will go to [facility]. - [facility] [employer] no dizziness, no melena or hematochezia patient also got aggressive hydration on admission 2 L.H and H now get baseline iron studies- will ff results and forward results to PCP or womens any clinic for ff up Previous gonorrhea infection- S/P treatment.- d/w her HIV testing with her- "not now" Cough dry - improved chest Incentive spirometry.. CXR negative- lungs clear DC home today Problem Qualifiers (1) Sepsis: Qualified Code: A41.9 - Sepsis, due to unspecified organism Karey Rebollar MD Dec 25, 2016 08:47
[2016-12-25] MEDS ORDERED: IBUPROFEN 600 MG TAB PO PRN (09:00)
[2016-12-25] MEDS ORDERED: CIPR-9 PO (09:23)
[2016-12-25] MEDS ORDERED: PANT40TA3 PO (09:27)
[2016-12-25 11:20] LABS: HEMATOCRIT 27.8 % (35.0-46.0)
[2016-12-25 11:41] LABS: TRANSFERRIN IRON PROFILE 157 MG/DL (200-360)
[2016-12-25 11:44] LABS: FERRITIN 73 NG/ML (8-252)
--- NOTE | 2016-12-31 10:05 | HHI.DS ---
Discharge Summary Admission Date Dec 23, 2016 at 04:58 Discharge Date: Dec 25, 2016 Admitting Diagnosis sepsis, UTI, pyelonephritis (1) Sepsis ICD Code: A41.9 Diagnosis: Principal (2) Acute peylopnephritis Diagnosis: Principal Procedures none Brief History - From Admission Patient is a 26-year-old female 2 para 2 status post delivery about 3 months ago through section in 09/22/16 at around 36 months of . 2 weeks ago started her cycles postdelivery. Patient states she is now sexually active single partner however partner is not using any condoms. Post she was admitted here on October 10 because of lower abdominal pain. ER notes said there was some infection in the post operative set section site. On exam then also showed cellulitis and signs of induration the left posterior thigh area. .. Patient was started on gentamicin and was discharged on clindamycin. Which she states she completed. About 2 weeks ago came to the ER and was noted to have a gonococcal PID. She was given Rocephin and switch to by mouth clindamycin which states she completed. She came to the emergency room today complaining of left flank pain which started about 3 days ago associated with fever and on and off chills. Patient takes ibuprofen when necessary for fever and pain. Patient specifically denies any urinary symptoms - burning,. dysuria.. Complains of persistent left flank pain worsened with movement. She actually states that her urine appears clear and light colored. Denies any vaginal discharge, tiching or bleeding. Her bowel movement has been regular denies any diarrhea. Fever and chills and left flank pain prompted consult to ER on evaluation with a white count of 25,000 and temperature of 102. She does complain of nausea and dry cough. Patient admitted for further evaluation and management. Imaging Last Impressions Abdomen/Pelvis CT 12/23/16 0306 Signed Impressions: Service Date/Time: Friday, December 23, 2016 04:02 - CONCLUSION: 1. No evidence of calcified renal stones or hydronephrosis. 2. No significant change compared to the prior examination. Srinivasan Lopez MD Chest X-Ray 12/23/16 0000 Signed Impressions: Service Date/Time: Friday, December 23, 2016 03:16 - CONCLUSION: No acute intrathoracic disease. Srinivasan Lopez MD PE at Discharge a x o x 3, NAD lungs clear regular rhythm abdomen soft, good bowel sounds no flank tenderness on exam extremities no edema Pt update on day of discharge afebrile,feeling stronger, no dysurai or abdominal tenderness Hospital Course 26-year-old female with history of recurrent urinary tract infection/acute pyelonephritis presenting with Sepsis secondary to UTI/acute pyelonephritis- UA- E. coli. blood culture negative so far Leukocytosis - down to [address] of abdomen/pelvis- no obstruction on Rocephin - change to Ciprolfloxacin 500 mg po bid x 12 days on DC Encourage adequate fluid intake Acute Anemia- - patient now states started cycles- usually heavy- I informed her - needs gyne ff up- states she will go to [facility]. - [employer] no dizziness, no melena or hematochezia patient also got aggressive hydration on admission 2 L.H and H now get baseline iron studies- will ff results and forward results [facility] Previous gonorrhea infection- S/P treatment.- d/w her HIV testing with her- "not now" Cough dry - improved chest Incentive spirometry.. CXR negative- lungs clear DC home today REgular intake, Increase fluid intake Pt Condition on Discharge: Stable Discharge Disposition: Discharge Home Discharge Time: <= 30 minutes Discharge Instructions DIET: Follow Instructions for: As Tolerated, No Restrictions Speech Therapy-Diet Recommends: Regular Activities you can perform: Weight Bearing as Liyah Follow up Referrals: ANALYTIC PROGRAMMER - [facility] P[facility] Follow-up - 12/28/16 with PCP New Medications: Ciprofloxacin (Cipro) 500 Mg Tab 500 MG PO BID Infection #24 Ref 0 TAB Pantoprazole (Pantoprazole) 40 Mg Tab 40 MG PO DAILY GIpro #30 TAB Continued Medications: Hydroxyzine Pamoate (Vistaril) 25 Mg Cap 25 MG PO HS PRN ANXIETY AND/OR INSOMNIA Ref 0 CAP Sertraline (Zoloft) 25 Mg Tab 75 MG PO DAILY #30 Ref 0 TAB Karey Rebollar MD Dec 31, 2016 10:05
[2017-01-10] MEDS ORDERED: MACR100C2 PO (11:04)
[2017-01-24] MEDS ORDERED: PROZ20CA11 PO (11:07)
== END 2016-12-25 13:42 | disposition home or self-care (01) | DRG 872 ==
LOC: NEPE 02:19 → NEDA 04:58 → NEPGCP 08:28 → N07A 15:42
PROVIDERS: ADMIT Internal Medicine; ATTEND Internal Medicine
DX: A41.9 Sepsis, unspecified organism (principal); A54.24 Gonococcal female pelvic inflammatory disease; N13.6 Pyonephrosis; L03.90 Cellulitis, unspecified; F17.210 Nicotine dependence, cigarettes, uncomplicated; I25.2 Old myocardial infarction; Z87.440 Personal history of urinary (tract) infections
CPT/HCPCS: 71010; 74176; 80053; 80307; 81001; 82728; 83540; 83550; 83605; 84703; 85014; 85018; 85025; 87040; 87077; 87086; 87186; 94150; 96374; 96375; J0696; J2270; J2405; J7030

== ENCOUNTER 2017-10-31 10:08 | Emergency (ER) | payer SELFPAY ==
[~2017-10-31] VITALS: Ht 160 cm; Wt 45.5 kg
[~2017-10-31 10:08] MED LIST changes: -CLIN150 PO; +PROZ20CA11 PO; +VIST25CA PO
[2017-10-31 10:09] VITALS: BP 125/74; PULSE 90; RESP 18; TEMP 98.5; O2SAT 98
[2017-10-31] MEDS ORDERED: BACT800T5 PO (11:24)
[2017-10-31] MEDS ORDERED: DOXY100C PO (11:24)
--- NOTE | 2017-10-31 11:29 | PD ---
HPI Chief Complaint: Skin Problem Time Seen by Provider: 11:23 Travel History International Travel<30 days: No Contact w/Intl Traveler<30days: No Traveled to known affect area: No History of Present Illness HPI This is a 26-year-old female with remote history of IV meth abuse who presents for evaluation of areas of skin redness on the lower extremities, right greater than left. Symptoms started 1 week ago. She reports that she has had frequent MRSA skin infections in the past and this feels similar. She reports some associated pain in the skin, aching, worse with palpation. Denies any fevers, chills, chest pain, shortness of breath. She has no other complaints at this time. PFSH Past Medical History Arthritis: No Anxiety: Yes Depression: Yes Heart Rhythm Problems: Yes Cancer: No Cardiovascular Problems: Yes High Cholesterol: No Chest Pain: No Congestive Heart Failure: No Cerebrovascular Accident: No Diminished Hearing: No Endocrine: No Genitourinary: Yes Immune Disorder: No Musculoskeletal: No Neurologic: No Psychiatric: No Reproductive: No Respiratory: No Immunizations Current: Yes Migraines: Yes Myocardial Infarction: Yes Renal Failure: No Seizures: Yes (7 YEARS AGO) ?: Not LMP: IMPLANT : 2 Para: 2 Past Surgical History Abdominal Surgery: Yes AICD: No Arteriovenous Shunt: No Cardiac Surgery: No Section: Yes Ear Surgery: No Endocrine Surgery: No Eye Surgery: No Genitourinary Surgery: No Gynecologic Surgery: Yes (C SECTION) Insulin Pump: No Joint Replacement: No Oral Surgery: No Thoracic Surgery: No Other Surgery: Yes Social History Alcohol Use: No Tobacco Use: Yes (four cigarettes per day) Substance Use: No Allergies-Medications (Allergen,Severity, Reaction): Coded Allergies: aspirin (Verified Allergy, Severe, PARALYSIS, 10/31/17) latex (Unverified Allergy, Severe, 10/31/17) ONLY TO GLOVES AND BANDAIDS. 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 There are areas of excoriated papular formation on the right lower extremity, 1 similar area on the left lower extremity, with some surrounding cellulitic changes. No fluctuance or drainage. HEAD: Atraumatic. Normocephalic. EYES: Pupils equal and round. No scleral icterus. No injection or drainage. ENT: No nasal bleeding or discharge. Mucous membranes pink and moist. NECK: Trachea midline. No JVD. CARDIOVASCULAR: Regular rate and rhythm. No murmur appreciated. RESPIRATORY: No accessory muscle use. Clear to auscultation. Breath sounds equal bilaterally. GASTROINTESTINAL: Abdomen soft, non-tender, nondistended. Hepatic and splenic margins not palpable. MUSCULOSKELETAL: No obvious deformities. No clubbing. No cyanosis. No edema. Data Data Last Documented VS Vital Signs Date Time Temp Pulse Resp B/P (MAP) Pulse Ox O2 Delivery O2 Flow Rate FiO2 10/31/17 10:09 98.5 90 18 125/74 (91) 98 Room Air MDM Medical Decision Making Medical Screen Exam Complete: Yes Emergency Medical Condition: Yes Medical Record Reviewed: Yes Differential Diagnosis Cellulitis, folliculitis, abscess, erysipelas, erythema nodosum Narrative Course Examination is consistent with cytolytic changes on the lower extremities. I suspect that the patient picks at her skin which has resulted in the cellulitis. She has a history of MRSA skin infections in the past. She will be discharged with Bactrim and doxycycline. Diagnosis Primary Impression: Cellulitis Additional Instructions: Medication as prescribed. Warm compresses multiple times a day 20 minutes at a time to the affected areas. Return for any acutely new or worsening symptoms. Med/Other Pt SpecificInfo: Prescription(s) given Scripts Sulfamethoxazole-Trimethoprim (Bactrim DS) 800-160 Mg Tab 1 TAB PO BID for Infection, #20 TAB 0 Refills Prov: Chace Gómez MD 10/31/17 Doxycycline Hyclate (Doxycycline Hyclate) 100 Mg Cap 100 MG PO BID for Infection, #20 CAP 0 Refills Prov: Chace Gómez MD 10/31/17 Disposition: 01 DISCHARGE HOME Condition: Stable Matthew Hernandez Oct 31, 2017 11:28
== END 2017-10-31 11:51 | disposition home or self-care (01) ==
LOC: NEPK 10:08
DX: L03.90 Cellulitis, unspecified (principal); F15.10 Other stimulant abuse, uncomplicated; F17.210 Nicotine dependence, cigarettes, uncomplicated
CPT/HCPCS: 99283